=== PATIENT | male | born 1960 ===

== ENCOUNTER 2024-11-14 15:27 | Emergency (ER) | payer OTHER, SELFPAY ==
[2024-11-14 15:37] VITALS: BP 188/68; PULSE 95; RESP 16; TEMP 36.4; O2SAT 97
--- NOTE | 2024-11-14 15:38 | PC.NURSE ---
nephew is with pt. confides in me that the pt was seen at [facility] overnight for possible dehydration, left approximately 4am, and was found by police at 6am outside of an [employer]. nephew states pt is very paranoid about his neighbors trying to kill him and is not acting right. pt is confused to time and situation, and appears agitated during intake.
--- NOTE | 2024-11-14 16:00 | ECG_ITS ---
Test Date: 2024-11-14 19:15:55 Measurements Intervals Brethren Rate: 91 P: 21 IA: 146 QRS: 39 QRSD: 94 T: 49 QT: 368 QTc: 453 Interpretive Statements SINUS RHYTHM BASELINE ARTIFACT- I, II, III, AVR, AVL, AVF, V1-V6 NORMAL ECG No previous ECG available for comparison Electronically Signed On 11-14-2024 20:37:19 CDT by Pierce Velasco D.O.
--- NOTE | 2024-11-14 16:01 | PC.NURSE ---
PT IS RELUCTANT TO GO BACK TO ROOM. HAS BEEN ENCOURAGED BY MULTIPLE STAFF MEMBERS AND IS REFUSING. VIKTORIA Stratton CHARGE NURSE AWARE AND IS CURRENTLY TALKING TO PT.
--- NOTE | 2024-11-14 16:01 | ED.AMS ---
HPI - Altered Mental Status General Chief Complaint: Altered Mental Status Stated Complaint: not acting right Time Seen by Provider: 11/14/24 15:55 Focused HPI: Patient is a 64-year-old male who presents to the ER altered mental status. His nephew is bringing him in because he has concerns about him being dehydrated and being paranoid. Patient denies any pain at time of examination. His nephew reports he took a ?Vicodin earlier today and has been acting strange ever since. Patient reports around 6:00 a.m. this morning patient saw his neighbors were trying to kill him. Police showed up and arrested the patient, as he had a rifle in his home and he is a previously convicted felon. Patient was brought to [facility] for evaluation and he was released, per his nephew. His nephew reports patient continues to act in a strange manner. At the time of examination patient is alert and oriented x3. He is refusing to come back to the main part of the ER for further evaluation. Pt is not SI or HI. GENERAL: Well-nourished, diaphoretic HEAD: Normocephalic, atraumatic. CHEST: Clear to auscultation. ?No respiratory distress. HEART: Tachycardia, regular rhythm. NEURO: ?Alert and oriented x3. Patient screened in triage and initial orders placed.? ?Additional care and disposition to be based upon?diagnostic testing and treatment. Related Data Home Medications ?Medication ?Instructions ?Recorded ?Confirmed ?Last Taken ?Type albuterol sulfate 90 mcg/actuation 2 puff inhalation Q6H PRN 11/15/24 11/15/24 Unknown History aerosol inhaler shortness of breath or wheezing aspirin 81 mg tablet,delayed 81 mg PO DAILY 11/15/24 11/15/24 Unknown History release atorvastatin 80 mg tablet 80 mg PO QPM 11/15/24 11/15/24 Unknown History baclofen 20 mg tablet 20 mg PO TID 11/15/24 11/15/24 Unknown History budesonide 160 mcg-glycopyr 9 2 inh inhalation BID 11/15/24 11/15/24 Unknown History mcg-formot 4.8 mcg/actuation HFA inhaler (Breztri Aerosphere) cetirizine 10 mg tablet 10 mg PO DAILY 11/15/24 11/15/24 Unknown History ergocalciferol (vitamin D2) 1,250 1,250 mcg PO WEEKLY 11/15/24 11/15/24 Unknown History mcg (50,000 unit) capsule famotidine 20 mg tablet 20 mg PO DAILY 11/15/24 11/15/24 Unknown History fluticasone propionate 50 1 spray intranasal Q12H 11/15/24 11/15/24 Unknown History mcg/actuation nasal spray,suspension gabapentin 100 mg capsule 200 mg PO TID 11/15/24 11/15/24 Unknown History ibuprofen 800 mg tablet 800 mg PO TID PRN fever or pain 11/15/24 11/15/24 Unknown History lisinopril 5 mg tablet 5 mg PO DAILY 11/15/24 11/15/24 Unknown History Allergies Allergy/AdvReac Type Severity Reaction Status Date / Time No Known Allergies Allergy Verified 11/14/24 15:29 [facility] Social History Social History Substance use type: does not use Course Vital Signs Vital signs: Vital Signs Temperature 36.4 C 11/14/24 15:37 Pulse Rate 95 11/14/24 15:37 Respiratory Rate 16 11/14/24 15:37 Blood Pressure 188/68 H 11/14/24 15:37 Pulse Oximetry 97 11/14/24 15:37 Oxygen Delivery Room Air 11/14/24 15:37 Temperature 36.4 C 11/14/24 15:37 Pulse Rate 95 11/14/24 15:37 Respiratory Rate 16 11/14/24 15:37 Blood Pressure 188/68 H 11/14/24 15:37 Pulse Oximetry 97 11/14/24 15:37 Oxygen Delivery Room Air 11/14/24 15:37 Discharge Plan Discharge Clinical Impression: Altered mental status Patient Disposition: Elopement After Seen by Prov Patient Language: Tajik Prescriptions: No Action albuterol sulfate 90 mcg/actuation HFA aerosol inhaler 2 puff inhalation Q6H PRN (Reason: shortness of breath or wheezing) aspirin 81 mg tablet,delayed release (DR/EC) 81 mg PO DAILY atorvastatin 80 mg tablet 80 mg PO QPM baclofen 20 mg tablet 20 mg PO TID Breztri Aerosphere 160-9-4.8 mcg/actuation HFA aerosol inhaler 2 inh INHALATION BID cetirizine 10 mg tablet 10 mg PO DAILY ergocalciferol (vitamin D2) 1,250 mcg (50,000 unit) capsule 1,250 mcg PO WEEKLY famotidine 20 mg tablet 20 mg PO DAILY fluticasone propionate 50 mcg/actuation spray,suspension 1 spray INTRANASAL Q12H gabapentin 100 mg capsule 200 mg PO TID lisinopril 5 mg tablet 5 mg PO DAILY ibuprofen 800 mg tablet 800 mg PO TID PRN (Reason: fever or pain) Follow-up/Referrals: UNKNOWN,DOCTOR [Primary Care Provider] -
--- NOTE | 2024-11-14 16:16 | PC.NURSE ---
PT HAS NOW LEFT THE FACILITY AFTER SPEAKING WITH VIKTORIA AGARWAL RN. PT ACCOMPANIED BY HIS NEPHEW.
== END 2024-11-14 17:18 | disposition left against medical advice (07) ==
LOC: ANHED 17:12
PROVIDERS: Emergency Provider Registered Nurse
DX: R41.82 Altered mental status, unspecified (principal)
CPT/HCPCS: 93005; 96360; 99283

== ENCOUNTER 2024-11-14 18:09 | Emergency (ER) | payer OTHER, SELFPAY ==
--- NOTE | ~2024-11-14 | CT_ITS ---
CT brain wo con Ordering provider: Sara Wing APRN History: 64 years Male with . altered mental status . Comparison: None. Technique: CT of the head without contrast. Radiation reduction technique utilized.The dose-length pr oduct was 605.33 mGy-cm. FINDINGS: BRAIN PARENCHYMA AND CSF SPACES: No midline shift, mass effect or hemorrhage. The brain parenchyma a nd CSF spaces are otherwise normal. VISUALIZED PARANASAL SINUSES: Well aerated. MASTOIDS: Well aerated. BONES: The bones appear intact. Old fracture of the medial wall of the left orbit. SOFT TISSUES: Visualized nasopharynx is normal. Superficial soft tissues are normal. IMPRESSION: No acute intracranial findings. Reviewed, dictated and finalized at location A.
[2024-11-14 18:30] VITALS: BP 188/80; PULSE 89; RESP 16; TEMP 36.4; O2SAT 97
--- NOTE | 2024-11-14 18:40 | ED_ITS ---
HPI - Altered Mental Status General Chief Complaint: Altered Mental Status <Sara Wing APRN - Last Filed: 11/15/24 02:51> Stated Complaint: ALTERED MENTAL STATUS <Sara Wing APRN - Last Filed: 11/15/24 02:51> Time Seen by Provider: 11/14/24 18:40 <Sara Wing APRN - Last Filed: 11/15/24 02:51> History of Present Illness HPI narrative: Patient is a 64-year-old male who presents to the ER altered mental status. His nephew is bringing him in because he has concerns about him being dehydrated and being paranoid. Patient denies any pain at time of examination. His nephew reports he took a ?Vicodin earlier today and has been acting strange ever since. Patient reports around 6:00 a.m. this morning patient saw his neighbors were trying to kill him. Police showed up and arrested the patient, as he had a rifle in his home and he is a previously convicted felon. Patient was brought to [facility] for evaluation and he was released, per his nephew. His nephew reports patient continues to act in a strange manner. At the time of examination patient is alert and oriented x3. Pt is not SI or HI. <Sara Wing APRN - Last Filed: 11/15/24 02:51> Related Data Home Medications: Home Medications ?Medication ?Instructions ?Recorded ?Confirmed ?Last Taken ?Type albuterol sulfate 90 mcg/actuation 2 puff inhalation Q6H PRN 11/15/24 11/15/24 Unknown History aerosol inhaler shortness of breath or wheezing aspirin 81 mg tablet,delayed 81 mg PO DAILY 11/15/24 11/15/24 Unknown History release atorvastatin 80 mg tablet 80 mg PO QPM 11/15/24 11/15/24 Unknown History baclofen 20 mg tablet 20 mg PO TID 11/15/24 11/15/24 Unknown History budesonide 160 mcg-glycopyr 9 2 inh inhalation BID 11/15/24 11/15/24 Unknown History mcg-formot 4.8 mcg/actuation HFA inhaler (Breztri Aerosphere) cetirizine 10 mg tablet 10 mg PO DAILY 11/15/24 11/15/24 Unknown History ergocalciferol (vitamin D2) 1,250 1,250 mcg PO WEEKLY 11/15/24 11/15/24 Unknown History mcg (50,000 unit) capsule famotidine 20 mg tablet 20 mg PO DAILY 11/15/24 11/15/24 Unknown History fluticasone propionate 50 1 spray intranasal Q12H 11/15/24 11/15/24 Unknown History mcg/actuation nasal spray,suspension gabapentin 100 mg capsule 200 mg PO TID 11/15/24 11/15/24 Unknown History ibuprofen 800 mg tablet 800 mg PO TID PRN fever or pain 11/15/24 11/15/24 Unknown History lisinopril 5 mg tablet 5 mg PO DAILY 11/15/24 11/15/24 Unknown History <Sara Wing APRN - Last Filed: 11/15/24 02:51> Allergies/Adverse Reactions: Allergies Allergy/AdvReac Type Severity Reaction Status Date / Time No Known Allergies Allergy Verified 11/14/24 15:29 <Sara Wing APRN - Last Filed: 11/15/24 02:51> Review of Systems 2 Review of Systems: All systems reviewed & are unremarkable except as noted in HPI and below <Sara Wing APRN - Last Filed: 11/15/24 02:51> PMFSH Social History Social History: Social History Substance use type: does not use <Sara Wing APRN - Last Filed: 11/15/24 02:51> Exam 2 Narrative: GENERAL: Well-nourished, diaphoretic, non-toxic, in mild distress d/t agitation HEAD: Normocephalic, atraumatic. RESPIRATORY: Airway patent, respirations nonlabored. Clear to auscultation bilaterally, no rales, rhonchi, wheezing. CARDIOVASCULAR: Tachycardia without murmurs, rubs, or gallops. Peripheral pulses 2+ and equal bilaterally. ABDOMINAL: Soft, nontender, distended. Normoactive BS. MUSCULOSKELETAL: Moves all extremities. Strength/ROM intact without gross deformities. NEURO: A&O X3. Speech clear. Cranial nerves II-XII intact. PSYCH: Agitated, difficulty carrying conversation <Sara Wing, [employer] - Last Filed: 11/15/24 02:51> Course Reevaluation(s) Reevaluation #1: 6:00 p.m. patient is resting comfortably. Patient did request to have a cigarette so patient was provided a nicotine patch. Transport to [facility] is pending at time of sign-out. <Andrew Welsh MD - Last Filed: 11/15/24 18:45> Vital Signs Vital signs: Vital Signs Temperature 97.6 F 11/14/24 18:30 Pulse Rate 89 11/14/24 18:30 Respiratory Rate 16 11/14/24 18:30 Blood Pressure 188/80 H 11/14/24 18:30 Pulse Oximetry 97 11/14/24 18:30 Oxygen Delivery Room Air 11/14/24 18:30 Temperature 98.1 F 11/15/24 08:12 Pulse Rate 100 11/15/24 08:12 Respiratory Rate 20 11/15/24 08:12 Blood Pressure 112/86 11/15/24 08:12 Pulse Oximetry 96 11/15/24 08:12 Oxygen Delivery Room Air 11/14/24 20:04 <Sara Wing, [employer] - Last Filed: 11/15/24 02:51> Vital Signs Temperature 97.6 F 11/14/24 18:30 Pulse Rate 89 11/14/24 18:30 Respiratory Rate 16 11/14/24 18:30 Blood Pressure 188/80 H 11/14/24 18:30 Pulse Oximetry 97 11/14/24 18:30 Oxygen Delivery Room Air 11/14/24 18:30 Temperature 98.1 F 11/15/24 08:12 Pulse Rate 100 11/15/24 08:12 Respiratory Rate 20 11/15/24 08:12 Blood Pressure 112/86 11/15/24 08:12 Pulse Oximetry 96 11/15/24 08:12 Oxygen Delivery Room Air 11/14/24 20:04 <Andrew Welsh MD - Last Filed: 11/15/24 18:45> MDM - Altered Mental Status MDM Narrative Medical decision making narrative: Patient is a 64-year-old male who presents to the ER altered mental status. His nephew is bringing him in because he has concerns about him being dehydrated and being paranoid. Patient denies any pain at time of examination. His nephew reports he took a ?Vicodin earlier today and has been acting strange ever since. Patient reports around 6:00 a.m. this morning patient saw his neighbors were trying to kill him. Police showed up and arrested the patient, as he had a rifle in his home and he is a previously convicted felon. Patient was brought to [facility] for evaluation and he was released, per his nephew. His nephew reports patient continues to act in a strange manner. At the time of examination patient is alert and oriented x3. Pt is not SI or HI. Labs Ordered: CBC, CMP, troponin, CK, PTT, INR, TSH, ethanol, UA, UDS Imaging Ordered: CT brain Medications Ordered: 1 L normal saline IV bolus x 2 Results: Patient's CBC indicates patient's white blood cell count of 13.8. His chemistry indicates a sodium of 146, BUN of 38, creatinine 1.71, GFR 41, total bilirubin of 1.4, CK of 430, total protein of 9.0, TSH is 0.402. Pt's head CT scan indicates No acute intracranial findings. Diagnosis: mild acute kidney injury, dehydration, altered mental status 2300- It was explained to patient, his nephew, and his sister, that patient should be admitted to the hospital for altered mental status, along with mild dehydration and a mild kidney injury. 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 Patient's nephew reports he has concerns about patient being discharged home because he fears he is a danger to himself and others. After further discussion between [employer] and pt's family it was decided that mental health intake would be consulted for further evaluation. 11/15/2024, 2400- Pt is medically clear for psychiatric evaluation. Patient Education/Shared MDM: Results of mental health intake shared with patient and his family. It was explained that if patient's altered mental status was due to dehydration, it is expected that patient's symptoms would have improved after 2 L normal saline IV bolus. Therefore, patient's altered mental status is more likely related to a mental health condition. Mental health intake assessed patient and they were in agreement that patient needs to be admitted to a mental health facility for further psychiatric evaluation. <Sara Camilo Maciej, [employer] - Last Filed: 11/15/24 02:51> Differential Diagnosis Differential diagnosis: Likely altered mental status, hyponatremia, sepsis and other <Sara Camilo Maciej [employer] - Last Filed: 11/15/24 02:51> Lab Data Attestation: I reviewed the patient's lab results. <Sara BuenoMari Wing [employer] - Last Filed: 11/15/24 02:51> Result diagrams: 11/14/24 18:52 11/14/24 18:52 <Sara Ton Wing [employer] - Last Filed: 11/15/24 02:51> Labs: Lab Results 11/14/24 11/14/24 11/14/24 Range/Units 18:52 18:58 19:18 WBC 13.8 H (4.5-10.0) K/mm3 RBC 4.86 (4.6-6.20) M/mm3 Hgb 16.1 (14.0-18.0) g/dL Hct 50.5 (42.0-52.0) % MCV 103.9 H (80-100) fl MCH 33.1 (26-34) pg MCHC 31.9 L (32-36) g/dl RDW 12.7 (11.5-14.5) % Plt Count 292 (150-375) k/mm3 MPV 9.7 (7.4-10.4) fl Immature Gran % (Auto) 0.3 (0-0.5) % Neut % (Auto) 77.3 H (45.5-73.1) % Lymph % (Auto) 15.2 L (18.3-44.2) % [place] % (Auto) 7.0 (2.6-8.5) % Eos % (Auto) 0.1 (0-4.4) % Baso % (Auto) 0.1 L (0.2-1.2) % Lymph # (Auto) 2.10 (0.9-3.2) K/mm3 [place] # (Auto) 1.0 H (0.1-0.6) K/mm3 Eos # (Auto) 0.0 (0-0.3) K/mm3 Baso # (Auto) 0.0 (0.0-0.1) K/mm3 Abs Immat Gran (auto) 0.04 H (0.00-0.031) K/mm3 Absolute Neuts (auto) 10.7 H (1.3-6.7) K/mm3 Absolute Nucleated RBC 0.000 (0.0-0.012) K/mm3 Nucleated RBC % 0.0 (0.0-0.2) % PT 13.0 (11.1-14.7) Seconds INR 0.9 APTT 27.4 (22.3-36.8) Seconds Sodium 146 H (137-145) mmol/L Potassium 4.7 (3.4-5.0) mmol/L Chloride 107 (98-107) mmol/L Carbon Dioxide 28 (22-30) mmol/L Anion Gap 11 (4-12) mmol/L BUN 38 H (9-20) mg/dL Creatinine 1.71 H (0.7-1.3) mg/dL Estim Creat Clear Calc 50 ml/min Estimated GFR 41 L (59 - ) Glucose 119 H (65-110) mg/dL POC Capillary Glucose 114 H (65-105) mg/dl Lactic Acid 2.0 (0.7-2.0) mmol/L Calcium 9.7 (8.4-10.2) mg/dL Total Bilirubin 1.4 H (0.2-1.3) mg/dL AST 33 (17-59) U/L ALT 31 (6-50) U/L Alkaline Phosphatase 66 (38-126) U/L Total Creatine Kinase 430 H (55-170) U/L Troponin I 0.015 (0.000-0.034) ng/mL Total Protein 9.0 H (6.3-8.2) g/dL Albumin 5.0 (3.5-5.1) g/dL TSH 0.402 L (0.465-4.680) uIU/mL Urine Color Yellow (Yellow) Urine Appearance Cloudy H (Clear) Urine pH 5.0 (5.0-9.0) Ur Specific [place] 1.028 (1.001-1.035) Urine Protein 2+ H (Negative) mg/dL Urine Glucose (UA) Negative (Negative) mg/dL Urine Ketones Trace H (Negative) mg/dL Ur Blood (Man) 1+ H (Negative) Urine Nitrate Negative (Negative) Urine Bilirubin Negative (Negative) Urine Urobilinogen 0.2 (<2.0) mg/dL Add Ur Microanalysis Reviewed Leukocyte Esterase Rfl Negative (Negative) NJ/UL Urine RBC 11-20 H (0-2) /hpf Urine WBC 0-5 (0-3) /hpf Ur Squamous Epith Cells None seen (Few) /hpf Urine Bacteria None seen /hpf Urine Casts 11-20 Hyaline Casts Present (None) /lpf Urine Mucus Present /lpf Urine Opiates Screen Negative (Negative) Urine Methadone Screen Negative (Negative) Ur Barbiturates Screen Negative (Negative) Ur Phencyclidine Scrn Negative (Negative) Ur Amphetamine Screen Negative (Negative) U Benzodiazepines Scrn Negative (Negative) Urine Cocaine Screen Negative (Negative) U Cannabinoids Screen Negative (Negative) Ethyl Alcohol < 10 (<10) mg/dL SARS-CoV-2 RNA (RT-PCR) (Negative) 11/15/24 Range/Units 00:49 WBC (4.5-10.0) K/mm3 RBC (4.6-6.20) M/mm3 Hgb (14.0-18.0) g/dL Hct (42.0-52.0) % MCV (80-100) fl MCH (26-34) pg MCHC (32-36) g/dl RDW (11.5-14.5) % Plt Count (150-375) k/mm3 MPV (7.4-10.4) fl Immature Gran % (Auto) (0-0.5) % Neut % (Auto) (45.5-73.1) % Lymph % (Auto) (18.3-44.2) % [place] % (Auto) (2.6-8.5) % Eos % (Auto) (0-4.4) % Baso % (Auto) (0.2-1.2) % Lymph # (Auto) (0.9-3.2) K/mm3 [place] # (Auto) (0.1-0.6) K/mm3 Eos # (Auto) (0-0.3) K/mm3 Baso # (Auto) (0.0-0.1) K/mm3 Abs Immat Gran (auto) (0.00-0.031) K/mm3 Absolute Neuts (auto) (1.3-6.7) K/mm3 Absolute Nucleated RBC (0.0-0.012) K/mm3 Nucleated RBC % (0.0-0.2) % PT (11.1-14.7) Seconds INR APTT (22.3-36.8) Seconds Sodium (137-145) mmol/L Potassium (3.4-5.0) mmol/L Chloride (98-107) mmol/L Carbon Dioxide (22-30) mmol/L Anion Gap (4-12) mmol/L BUN (9-20) mg/dL Creatinine (0.7-1.3) mg/dL Estim Creat Clear Calc ml/min Estimated GFR (59 - ) Glucose (65-110) mg/dL POC Capillary Glucose (65-105) mg/dl Lactic Acid (0.7-2.0) mmol/L Calcium (8.4-10.2) mg/dL Total Bilirubin (0.2-1.3) mg/dL AST (17-59) U/L ALT (6-50) U/L Alkaline Phosphatase (38-126) U/L Total Creatine Kinase (55-170) U/L Troponin I (0.000-0.034) ng/mL Total Protein (6.3-8.2) g/dL Albumin (3.5-5.1) g/dL TSH (0.465-4.680) uIU/mL Urine Color (Yellow) Urine Appearance (Clear) Urine pH (5.0-9.0) Ur Specific [place] (1.001-1.035) Urine Protein (Negative) mg/dL Urine Glucose (UA) (Negative) mg/dL Urine Ketones (Negative) mg/dL Ur Blood (Man) (Negative) Urine Nitrate (Negative) Urine Bilirubin (Negative) Urine Urobilinogen (<2.0) mg/dL Add Ur Microanalysis Leukocyte Esterase Rfl (Negative) NJ/UL Urine RBC (0-2) /hpf Urine WBC (0-3) /hpf Ur Squamous Epith Cells (Few) /hpf Urine Bacteria /hpf Urine Casts Hyaline Casts (None) /lpf Urine Mucus /lpf Urine Opiates Screen (Negative) Urine Methadone Screen (Negative) Ur Barbiturates Screen (Negative) Ur Phencyclidine Scrn (Negative) Ur Amphetamine Screen (Negative) U Benzodiazepines Scrn (Negative) Urine Cocaine Screen (Negative) U Cannabinoids Screen (Negative) Ethyl Alcohol (<10) mg/dL SARS-CoV-2 RNA (RT-PCR) Negative (Negative) <Sara BuenoMari Wing, [employer] - Last Filed: 11/15/24 02:51> Lab Results 11/14/24 11/14/24 11/14/24 Range/Units 18:52 18:58 19:18 WBC 13.8 H (4.5-10.0) K/mm3 RBC 4.86 (4.6-6.20) M/mm3 Hgb 16.1 (14.0-18.0) g/dL Hct 50.5 (42.0-52.0) % MCV 103.9 H (80-100) fl MCH 33.1 (26-34) pg MCHC 31.9 L (32-36) g/dl RDW 12.7 (11.5-14.5) % Plt Count 292 (150-375) k/mm3 MPV 9.7 (7.4-10.4) fl Immature Gran % (Auto) 0.3 (0-0.5) % Neut % (Auto) 77.3 H (45.5-73.1) % Lymph % (Auto) 15.2 L (18.3-44.2) % [place] % (Auto) 7.0 (2.6-8.5) % Eos % (Auto) 0.1 (0-4.4) % Baso % (Auto) 0.1 L (0.2-1.2) % Lymph # (Auto) 2.10 (0.9-3.2) K/mm3 [place] # (Auto) 1.0 H (0.1-0.6) K/mm3 Eos # (Auto) 0.0 (0-0.3) K/mm3 Baso # (Auto) 0.0 (0.0-0.1) K/mm3 Abs Immat Gran (auto) 0.04 H (0.00-0.031) K/mm3 Absolute Neuts (auto) 10.7 H (1.3-6.7) K/mm3 Absolute Nucleated RBC 0.000 (0.0-0.012) K/mm3 Nucleated RBC % 0.0 (0.0-0.2) % PT 13.0 (11.1-14.7) Seconds INR 0.9 APTT 27.4 (22.3-36.8) Seconds Sodium 146 H (137-145) mmol/L Potassium 4.7 (3.4-5.0) mmol/L Chloride 107 (98-107) mmol/L Carbon Dioxide 28 (22-30) mmol/L Anion Gap 11 (4-12) mmol/L BUN 38 H (9-20) mg/dL Creatinine 1.71 H (0.7-1.3) mg/dL Estim Creat Clear Calc 50 ml/min Estimated GFR 41 L (59 - ) Glucose 119 H (65-110) mg/dL POC Capillary Glucose 114 H (65-105) mg/dl Lactic Acid 2.0 (0.7-2.0) mmol/L Calcium 9.7 (8.4-10.2) mg/dL Total Bilirubin 1.4 H (0.2-1.3) mg/dL AST 33 (17-59) U/L ALT 31 (6-50) U/L Alkaline Phosphatase 66 (38-126) U/L Total Creatine Kinase 430 H (55-170) U/L Troponin I 0.015 (0.000-0.034) ng/mL Total Protein 9.0 H (6.3-8.2) g/dL Albumin 5.0 (3.5-5.1) g/dL TSH 0.402 L (0.465-4.680) uIU/mL Urine Color Yellow (Yellow) Urine Appearance Cloudy H (Clear) Urine pH 5.0 (5.0-9.0) Ur Specific [place] 1.028 (1.001-1.035) Urine Protein 2+ H (Negative) mg/dL Urine Glucose (UA) Negative (Negative) mg/dL Urine Ketones Trace H (Negative) mg/dL Ur Blood (Man) 1+ H (Negative) Urine Nitrate Negative (Negative) Urine Bilirubin Negative (Negative) Urine Urobilinogen 0.2 (<2.0) mg/dL Add Ur Microanalysis Reviewed Leukocyte Esterase Rfl Negative (Negative) NJ/UL Urine RBC 11-20 H (0-2) /hpf Urine WBC 0-5 (0-3) /hpf Ur Squamous Epith Cells None seen (Few) /hpf Urine Bacteria None seen /hpf Urine Casts 11-20 Hyaline Casts Present (None) /lpf Urine Mucus Present /lpf Urine Opiates Screen Negative (Negative) Urine Methadone Screen Negative (Negative) Ur Barbiturates Screen Negative (Negative) Ur Phencyclidine Scrn Negative (Negative) Ur Amphetamine Screen Negative (Negative) U Benzodiazepines Scrn Negative (Negative) Urine Cocaine Screen Negative (Negative) U Cannabinoids Screen Negative (Negative) Ethyl Alcohol < 10 (<10) mg/dL SARS-CoV-2 RNA (RT-PCR) (Negative) 11/15/24 Range/Units 00:49 WBC (4.5-10.0) K/mm3 RBC (4.6-6.20) M/mm3 Hgb (14.0-18.0) g/dL Hct (42.0-52.0) % MCV (80-100) fl MCH (26-34) pg MCHC (32-36) g/dl RDW (11.5-14.5) % Plt Count (150-375) k/mm3 MPV (7.4-10.4) fl Immature Gran % (Auto) (0-0.5) % Neut % (Auto) (45.5-73.1) % Lymph % (Auto) (18.3-44.2) % [place] % (Auto) (2.6-8.5) % Eos % (Auto) (0-4.4) % Baso % (Auto) (0.2-1.2) % Lymph # (Auto) (0.9-3.2) K/mm3 [place] # (Auto) (0.1-0.6) K/mm3 Eos # (Auto) (0-0.3) K/mm3 Baso # (Auto) (0.0-0.1) K/mm3 Abs Immat Gran (auto) (0.00-0.031) K/mm3 Absolute Neuts (auto) (1.3-6.7) K/mm3 Absolute Nucleated RBC (0.0-0.012) K/mm3 Nucleated RBC % (0.0-0.2) % PT (11.1-14.7) Seconds INR APTT (22.3-36.8) Seconds Sodium (137-145) mmol/L Potassium (3.4-5.0) mmol/L Chloride (98-107) mmol/L Carbon Dioxide (22-30) mmol/L Anion Gap (4-12) mmol/L BUN (9-20) mg/dL Creatinine (0.7-1.3) mg/dL Estim Creat Clear Calc ml/min Estimated GFR (59 - ) Glucose (65-110) mg/dL POC Capillary Glucose (65-105) mg/dl Lactic Acid (0.7-2.0) mmol/L Calcium (8.4-10.2) mg/dL Total Bilirubin (0.2-1.3) mg/dL AST (17-59) U/L ALT (6-50) U/L Alkaline Phosphatase (38-126) U/L Total Creatine Kinase (55-170) U/L Troponin I (0.000-0.034) ng/mL Total Protein (6.3-8.2) g/dL Albumin (3.5-5.1) g/dL TSH (0.465-4.680) uIU/mL Urine Color (Yellow) Urine Appearance (Clear) Urine pH (5.0-9.0) Ur Specific [place] (1.001-1.035) Urine Protein (Negative) mg/dL Urine Glucose (UA) (Negative) mg/dL Urine Ketones (Negative) mg/dL Ur Blood (Man) (Negative) Urine Nitrate (Negative) Urine Bilirubin (Negative) Urine Urobilinogen (<2.0) mg/dL Add Ur Microanalysis Leukocyte Esterase Rfl (Negative) NJ/UL Urine RBC (0-2) /hpf Urine WBC (0-3) /hpf Ur Squamous Epith Cells (Few) /hpf Urine Bacteria /hpf Urine Casts Hyaline Casts (None) /lpf Urine Mucus /lpf Urine Opiates Screen (Negative) Urine Methadone Screen (Negative) Ur Barbiturates Screen (Negative) Ur Phencyclidine Scrn (Negative) Ur Amphetamine Screen (Negative) U Benzodiazepines Scrn (Negative) Urine Cocaine Screen (Negative) U Cannabinoids Screen (Negative) Ethyl Alcohol (<10) mg/dL SARS-CoV-2 RNA (RT-PCR) Negative (Negative) <Andrew Welsh MD - Last Filed: 11/15/24 18:45> Imaging Data Attestation: I personally reviewed and interpreted this imaging study as follows: < Sara Wing APRN - Last Filed: 11/15/24 02:51> Radiologist's impression: Impressions Head CT 11/14/24 20:47 IMPRESSION: No acute intracranial findings. <Sara Wing APRN - Last Filed: 11/15/24 02:51> Discharge Plan Discharge Clinical Impression: Altered mental status, Dehydration, mild, Acute kidney injury <Sara Wing APRN - Last Filed: 11/15/24 02:51> Patient Disposition: Psychiatric Hosp <Sara Wing APRN - Last Filed: 11/15/24 02:51> Condition: Serious <Sara Wing APRN - Last Filed: 11/15/24 02:51> Patient Language: Fijian <Sara Wing APRN - Last Filed: 11/15/24 02:51> Prescriptions: No Action albuterol sulfate 90 mcg/actuation HFA aerosol inhaler 2 puff inhalation Q6H PRN (Reason: shortness of breath or wheezing) aspirin 81 mg tablet,delayed release (DR/EC) 81 mg PO DAILY atorvastatin 80 mg tablet 80 mg PO QPM baclofen 20 mg tablet 20 mg PO TID Breztri Aerosphere 160-9-4.8 mcg/actuation HFA aerosol inhaler 2 inh INHALATION BID cetirizine 10 mg tablet 10 mg PO DAILY ergocalciferol (vitamin D2) 1,250 mcg (50,000 unit) capsule 1,250 mcg PO WEEKLY famotidine 20 mg tablet 20 mg PO DAILY fluticasone propionate 50 mcg/actuation spray,suspension 1 spray INTRANASAL Q12H gabapentin 100 mg capsule 200 mg PO TID lisinopril 5 mg tablet 5 mg PO DAILY ibuprofen 800 mg tablet 800 mg PO TID PRN (Reason: fever or pain) <Sara Wing APRN - Last Filed: 11/15/24 02:51> Follow-up/Referrals: UNKNOWN,DOCTOR [Primary Care Provider] - <Sara Wing APRN - Last Filed: 11/15/24 02:51>
[2024-11-14 19:05] LABS: Basophils Percent Auto 0.1 % (0.2-1.2); Eosinophils Percent Auto 0.1 % (0-4.4); Hematocrit 50.5 % (42.0-52.0); Hemoglobin 16.1 g/dL (14.0-18.0); Immature Granulocyte Absolute 0.04 K/mm3 (0.00-0.031); Immature Granulocyte Percent A 0.3 % (0-0.5); Lymphocytes Percent Auto 15.2 % (18.3-44.2); Mean Corpuscular HGB Conc 31.9 g/dl (32-36); Mean Corpuscular Hemoglobin 33.1 pg (26-34); Mean Corpuscular Volume 103.9 fl (80-100); Mean Platelet Volume 9.7 fl (7.4-10.4); Neutrophils Absolute Auto 10.7 K/mm3 (1.3-6.7); Neutrophils Percent Auto 77.3 % (45.5-73.1); Platelet Count Result 292 k/mm3 (150-375); Red Blood Count 4.86 M/mm3 (4.6-6.20); Red Cell Distribution Width 12.7 % (11.5-14.5); White Blood Count 13.8 K/mm3 (4.5-10.0)
[2024-11-14 19:15] LABS: Alanine Aminotransferase 31 U/L (6-50); Alkaline Phosphatase 66 U/L (38-126); Anion Gap 11 mmol/L (4-12); Aspartate Amino Transferase 33 U/L (17-59); Bilirubin,Total 1.4 mg/dL (0.2-1.3); Blood Urea Nitrogen 38 mg/dL (9-20); Calcium 9.7 mg/dL (8.4-10.2); Carbon Dioxide 28 mmol/L (22-30); Chloride 107 mmol/L (98-107); Creatine Kinase 430 U/L (55-170); Estimated CRCL calculation 50 ml/min; Estimated Glomerular Filt Rate 41; Glucose 119 mg/dL (65-110); Potassium 4.7 mmol/L (3.4-5.0); Sodium 146 mmol/L (137-145)
[2024-11-14 19:23] LABS: Amphetamine Screen Urine Negative (Negative); Barbiturate Screen Urine Negative (Negative); Benzodiazepines Screen Urine Negative (Negative); Cannabinoid Screen Urine Negative (Negative); Cocaine Screen Urine Negative (Negative); Methadone Screen Urine Negative (Negative); Opiate Screen Urine Negative (Negative); Phencyclidine Screen Urine Negative (Negative)
[2024-11-14 19:27] LABS: Troponin I 0.015 ng/mL (0.000-0.034)
--- OUTSIDE RECORDS SUMMARY | 2024-11-14 19:38 | XMS_ITS | Encounter Summary ---
Author Organization [facility] Address Formerly [facility] [place] [address] Care Team Providers Care Panel Maker Name Role Phone Issa Rae MD Primary Care Provider [phone] Encounter Details Date Type Department Care Team (Latest Contact Info) Description 11/14/2024 Travel Social History Tobacco Use Types Packs/Day Years Used Date Smoking Tobacco: Every Day Cigarettes 2 20 Smokeless Tobacco: Never Comments:Verbalized understa nding of smoking cessation. Recomended he quit. Alcohol Use Standard Drinks/Week Comments Not Currently 6 (1 standard drink = 0.6 oz pur e alcohol) [facility] Utilities Answer Date Recorded In the past 12 months has e [employer], gas, oil, or water [employer] threatened to shut off services in your home? No 12/15/2023 Humiliation, Afraid, Rape, and Kick questionnair e Answer Date Recorded Within the last year, have y ou been afraid of your partner or ex-partner? No 12/15/2023 Within the last year, have y ou been humiliated or emotionally abused in other ways by your partner or ex-partner? No Within the last year, have y ou been kicked, hit, slapped, or otherwise physically hurt by your partner or ex-partner? No 12/15/2023 Within the last year, have y ou been raped or forced to have any kind of sexual activity by your partner or ex-partner? No 12/15/2023 AUDIT-C Answer Date Recorded Frequency of Alcohol Consumption Monthly or less 11/05/2018 Average Number of Drinks Not on file 019 Frequency of Binge Drinking Not on file 10/20 Overall Financial Resource Strain (CARDIA) Answe r Date Recorded How hard is it for you to pa y for the very basics like food, housing, medical care, and heating? Not hard at all 12/15/2023 Hunger Vital Sign Answer Date Recorded Within the past 12 months, y ou worried that your food would run out before you got the money to buy more. Never true 12/15/19 24 Within the past 12 months, t he food you bought just didn't last and you didn't have money to get more. Never true 12/15/2023 PRAPARE - Transportation Answer Date Re corded In the past 12 months, has l ack of transportation kept you from medical appointments or from getting medications? No 11/20 In the past 12 months, has l ack of transportation kept you from meetings, work, or from getting things needed for daily living? No 12/15/2023 Housing Stability Vital Sign Answer Joe e Recorded In the last 12 months, was t here a time when you were not able to pay the mortgage or rent on time? No 12/15/2023 In the past 12 months, how m any times have you moved where you were living? 1 12/15/2023 At any time in the past 12 m [facility], were you homeless or living in a prison (including now)? No 12/15/2023 Sex and Gender Information Value Date Recorded Sex Assigned at Not on file Legal Sex Male 4:25 PM CDT Gender Identity Not on file Sexual Orientation Not on file documented as of this encounter Functional Status * Are you deaf or do you have serious difficulty hearing Answer Date of Assessment Author Status No 12/15/2023 2:15 AM ELSYT Amrit Solorio RN Active * Are you blind or do you have serious difficulty seeing, even when wearing glasses? Answer Date of Assessment Author Status No 12/15/2023 2:15 AM ELSYT Amrit Solorio RN Active * Do you have serious difficulty walking or climbing stairs? Answer Date of Assessment Author Status No 12/15/2023 2:15 AM Amrit Hodgson RN Active * Do you have difficulty dressing or bathing? Answer Date of Assessment Author Status No 12/15/2023 2:15 AM Amrit Hodgson RN Active * Because of a physical, mental, or emotional condition, do you have difficulty doing errands alone such as visiting a doctor's office or shopping? Answer Date of Assessment Author Status No 12/15/2023 2:15 AM Amrit Hodgson RN Active * Calculated C-SSRS Risk Score (Lifetime/Recent) Answer Date of Assessment Author Status No Risk Indicated 11/14/2024 12:55 AM Wendy Dumont RN Active * [place] Suicide Severity Rating Scale (Screener/Recent Self-Report) Question Answer Date of Assessment Author Status 1. Wish to be (Past 1 Month) No 11/14/2024 12:55 AM Candie Dumont RN Ac tive 2. Non-Specific Active Suicidal Thoughts (Past 1 Month) No 11/14/2024 12:55 AM Candie Dumont RN Ac tive 6. Suicidal Behavior (Lifetime) No 11/14/2024 12:55 AM Candie Dumont RN Ac tive documented as of this encounter Mental Status * Because of a physical, mental, or emotional condition, do you have serious difficulty concentrating, remembering, or making decisions? Answer Entry Date Author Status No 12/15/2023 2:15 AM Amrit Hodgson RN Active documented in this encounter Plan of Treatment Not on file documented as of this encounter Visit Diagnoses Not on filedocumented in this encounter Care Teams Panel Maker Relationship Specialty Start Date End Date Issa Rae MD [address] [place] [id number] PCP - General 12/04/16 documented as of this encounter
--- OUTSIDE RECORDS SUMMARY | 2024-11-14 19:38 | XMS_ITS | Encounter Summary ---
Author Organization [facility] Address Formerly [facility] [place] [address] Care Team Providers Care Supervisor Electron Tube Processing Name Role Phone Issa Rae MD Primary Care Provider [phone] Reason for Referral * Imaging (Emergency) - New Request Specialty Diagnoses / Procedures Referred By Dipak ramey Referred To Contact RADIOLOGY Procedures CT HEAD WO CON Mark Villalobos MD [address] [place] [id number] Phone: tel: fax: Referral ID Status Reason Start Date Expiration Date V isits Requested Visits Authorized [id number] New Request 11/14/2024 11/14/2025 1 1 Reason for Visit * Reason Comments Visual Changes Encounter Details Date Type Department Care Team (Late st Contact Info) Description 11/14/2024 1:31 AM CDT - 11/14/2024 5:42 AM CDT Hospital Encounter [facility] Emergency Room [address] [place], [place] [address] Mark Villalobos MD [address] [place] [phone] Isidoro Reed MD 1 [facility] [place] [address] [phone] (Work) Marisela Bonner MD 1 [facility] [place] [address] Deidre Centeno MD 1 [place] [address] -[phone] (Work) Visual Changes Discharge Disposition: Left Against Medical Advice Social History Tobacco Use Types Packs/Day Years Used Date Smoking Tobacco: Every Day Cigarettes 2 20 Smokeless Tobacco: Never Comments:Verbalized understa nding of smoking cessation. Recomended he quit. Alcohol Use Standard Drinks/Week Comments Not Currently 6 (1 standard drink = 0.6 oz pur e alcohol) [facility] Utilities Answer Date Recorded In the past 12 months has [facility] [employer], gas, oil, or water [email or web address] threatened to shut off services in your [...] any time in the past 12 m [facility], were you homeless or living in a halfway (including now)? No 12/15/2023 Sex and Gender Information Value Date Recorded Sex Assigned at Not on file Legal Sex Male 4:25 PM CDT Gender Identity Not on file Sexual Orientation Not on file documented as of this encounter Last Filed Vital Signs Vital Sign Reading Time Taken Comments Blood Pressure 138/66 11/14/2024 4:00 AM CDT Pulse 92 11/14/2024 4:00 AM CDT Temperature 36.9 C (98.4 F) 11/14/2024 12:49 AM CDT Respiratory Rate 18 11/14/2024 4:00 AM CDT Oxygen Saturation 96% 11/14/2024 4:00 AM CDT Inhaled Oxygen Concentration - - Weight 111.5 kg (245 lb 13 oz) 11/14/2024 12:49 AM CDT Height 177.8 cm (5' 10 ) 11/14/2024 12:49 AM CDT Body Mass Index 35.27 11/14/2024 12:49 AM CDT documented in this encounter Functional Status * Are you deaf or do you have serious difficulty hearing Answer Date of Assessment Author Status No 12/15/2023 2:15 AM CDT Amrit Solorio RN Active * Are you blind or do you have serious difficulty seeing, even when wearing glasses? Answer Date of Assessment Author Status No 12/15/2023 2:15 AM Amrit Hodgson RN Active * Do you have serious [...] 12:55 AM Wendy Dumont RN Active * [place] Suicide Severity Rating Scale (Screener/Recent Self-Report) Question Answer Date of Assessment Author Status 1. Wish to be (Past 1 Month) No 11/14/2024 12:55 AM Candie Dumont RN Ac tive 2. Non-Specific Active Suicidal Thoughts (Past 1 Month) No 11/14/2024 12:55 AM Candie Dumont RN Ac ticandy 6. Suicidal Behavior (Lifetime) No 11/14/2024 12:55 AM Candie Dumont RN Ac tive documented as of this encounter Mental Status * Because of a physical, mental, or emotional condition, do you have serious difficulty concentrating, remembering, or making decisions? Answer Entry Date Author Status No 12/15/2023 2:15 AM Amrit Hodgson RN Active documented in this encounter Medications at Time of Discharge albuterol sulfate HFA 108 (90 Base) MCG/ACT inhaler Inhale 2 puffs into the lungs every 6 (six) hours as needed for Wheezing. 8 g 11/12/2022 ANORO ELLIPTA 62.5-25 MCG/ACT inhaler Inhale 1 puff into the lungs daily. aspirin EC (ECOTRIN) 81 MG tablet Take 1 tablet (81 mg total) by mouth daily. 08/22/2023 baclofen (LIORESAL) 20 MG tablet Take 1 tablet (20 mg total) by mouth 3 (three) times daily. 11/25/2023 cetirizine (ZYRTEC) 10 MG tablet Take 1 tablet (10 mg total) by mouth daily. 11/18/2023 famotidine 20 MG tablet Take 20 mg by mouth 2 (two) times daily. 0 08/11/2018 fluticasone propionate (FLONASE) 50 MCG/ACT nasal spray 1 spray by Each Nostril route 2 (two) times daily. shake liquid 10/27/2023 gabapentin 100 MG capsule TK 2 CS PO TID 1 04/12/2019 lisinopril (PRINIVIL) 5 MG tablet Take 1 tablet (5 mg total) by mouth daily. vitamin D2, ergocalciferol, (DRISDOL) 1.25 mg capsule Take 1 capsule (1.25 mg total) by mouth once a week. 11/21/2023 zolpidem (AMBIEN) 10 MG tablet Take 1 tablet (10 mg total) by mouth nightly as needed. 05/07/2023 documented as of this encounter ED Notes * Min Marquez RN - 11/14/2024 5:25 AM CDT Patient alert and oriented x 4. Patient refusing any further treatment. Risks and consequences of leaving explained to the patient. Patient verbalizes an understanding of information provided. Patient signed AMA form. * Min Marquez RN - 11/14/2024 5:25 AM CDT Patient ambulated out of ER to waiting room. Dr. Villalobos, Dr. Reed and primary RN Hecotr aware of patient leaving AMA. * Min Marquez RN - 11/14/2024 5:20 AM CDT Patient stated his sister will come pick him up. * Mark Villalobos MD - 11/14/2024 1:53 AM CDT Chief Complaint Chief Complaint Patient presents with Visual Changes History of Present Illness 64-year-old male who presents with various complaints. Initially reported calf pain. Then stated hehas been having bilateral vision changes including flashing lights. H/o stroke. Thinks his speech has been abnormal. These symptoms ongoing for several days. Then starts stating he has kidney pain that feels like a tugging sensation. Overall poor historian History provided by: Patient Medical History ALLERGIES: Review of patient's allergies indicates: Allergen Reactions Penicillins Hives MEDICATIONS: Prior to Admission medications Medication Sig Start Date End Date Taking? Authorizing Provider albuterol sulfate HFA 108 (90 Base) MCG/ACT inhaler Inhale 2 puffs into the lungs every 6 (six) hours as needed for Wheezing. 11/12/22 VARGAS Carvalho ANORO ELLIPTA 62.5-25 MCG/ACT inhaler Inhale 1 puff into the lungs daily. Default History Genericprovider aspirin EC (ECOTRIN) 81 MG tablet Take 1 tablet (81 mg total) by mouth daily. 08/22/23 Default History Genericprovider baclofen (LIORESAL) 20 MG tablet Take 1 tablet (20 mg total) by mouth 3 (three) times daily. 11/25/23Default History Genericprovider cetirizine (ZYRTEC) 10 MG tablet Take 1 tablet (10 mg total) by mouth daily. 11/18/23 Default History Genericprovider famotidine 20 MG tablet Take 20 mg by mouth 2 (two) times daily. 08/11/18 [facility] fluticasone propionate (FLONASE) 50 MCG/ACT nasal spray 1 spray by Each Nostril route 2 (two) timesdaily. shake liquid 10/27/23 Default History Genericprovider gabapentin 100 MG capsule TK 2 CS PO TID 04/12/19 [facility] lisinopril (PRINIVIL) 5 MG tablet Take 1 tablet (5 mg total) by mouth daily. Default History Genericprovider vitamin D2, ergocalciferol, (DRISDOL) 1.25 mg capsule Take 1 capsule (1.25 mg total) by mouth once a week. 11/21/23 Default History Genericprovider zolpidem (AMBIEN) 10 MG tablet Take 1 tablet (10 mg total) by mouth nightly as needed. 05/07/23 Default History Genericprovider PAST MEDICAL HISTORY: Past Medical History[1] PAST SURGICAL HISTORY: Past Surgical History[2] FAMILY HISTORY: Family History[3] SOCIAL HISTORY: Social History[4] Review of Systems Review of Systems All other systems reviewed and are negative. Physical Exam Filed Vitals: 11/14/24 0049 11/14/24 0400 BP: (!) 172/87 138/66 Pulse: 100 92 Resp: 20 18 Temp: 98.4 ??F (36.9 ??C) TempSrc: Oral SpO2: 100% 96% Weight: 111.5 kg (245 lb 13 oz) Height: 1.778 m (5' 10 ) Physical Exam Vitals and nursing note reviewed. Constitutional: General: He is not in acute distress. Appearance: Normal appearance. He is not ill-appearing, toxic-appearing or diaphoretic. HENT: Head: Normocephalic and atraumatic. Nose: Nose normal. Eyes: Extraocular Movements: Extraocular movements intact. Conjunctiva/sclera: Conjunctivae normal. Pupils: Pupils are equal, round, and reactive to light. Cardiovascular: Rate and Rhythm: Normal rate and regular rhythm. Pulses: Normal pulses. Heart sounds: Normal heart sounds. Pulmonary: Effort: Pulmonary effort is normal. Breath sounds: Normal breath sounds. Abdominal: General: There is no distension. Palpations: Abdomen is soft. Tenderness: There is no abdominal tenderness. Skin: General: Skin is warm and dry. Capillary Refill: Capillary refill takes less than 2 seconds. Neurological: General: No focal deficit present. Mental Status: He is alert and oriented to person, place, and time. Cranial Nerves: Cranial nerves 2-12 are intact. Sensory: Sensation is intact. Motor: Motor function is intact. Coordination: Coordination is intact. Diagnostic Studies / Procedures ELECTROCARDIOGRAMS: Results for orders placed or performed during the hospital encounter of 11/14/24 ECG 12 lead Narrative [place] Test Date: 2024-11-14 Pat Name: DONN MATIAS Department: 41 Room: Gender: Male Slate Picker: : [phone] Requested By: LEONILA PALACIO Order Number: [id number] Reading MD: Measurements Intervals [place] Rate: 92 P: 42 KY: 158 QRS: 60 QRSD: 86 T: 63 QT: 330 QTc: 409 Interpretive Statements SINUS RHYTHM Compared to ECG 12/14/2023 22:16:44 No significant changes LABORATORY STUDIES: Results for orders placed or performed during the hospital encounter of 11/14/24 CBC W/DIFF AUTOMATED Result Value Ref Range WBC 12.93 (H) 4.5 - 11.0 x10'3/uL RBC 4.92 4.70 - 6.10 x10'6/uL HGB 16.7 14.0 - 18.0 G/DL HCT 49.6 43.0 - 54.0 % MCV 100.8 (H) 80.0 - 94.0 FL MCH 33.9 (H) 27.0 - 31.0 PG MCHC 33.7 32.0 - 36.0 G/DL RDW 12.6 11.5 - 14.5 % PLT 316 130 - 400 x10'3/uL MPV 9.8 9.3 - 12.2 FL DIFFERENTIAL TYPE AUTOMATED DIFFERENTIAL NEUTROPHILS % 80.0 % LYMPHOCYTES % 13.9 % MONOCYTES % 5.7 % EOSINOPHILS 0.0 % BASOPHILS 0.2 % IMMATURE GRANS % 0.2 % ABS. NEUTROPHILS 10.33 (H) 1.80 - 7.70 x10'3/uL ABS. LYMPHOCYTES 1.80 1.00 - 4.80 x10'3/uL ABS. MONOCYTES 0.74 0.30 - 0.82 x10'3/uL ABS. EOSINOPHILS 0.00 (L) 0.04 - 0.54 x10'3/uL ABS. BASOPHILS 0.03 0.01 - 0.08 x10'3/uL ABS. IMMATURE GRANULOCYTES 0.03 0.00 - 0.49 x10'3/uL COMPREHENSIVE METABOLIC PANEL Result Value Ref Range GLUCOSE 135 (H) 70 - 99 MG/DL BUN 39 (H) 7 - 18 MG/DL CREATININE S/P/B 2.76 (H) 0.7 - 1.3 MG/DL SODIUM S/P/B 139 136 - 145 MMOL/L POTASSIUM S/P/B 4.0 3.5 - 5.1 MMOL/L CHLORIDE S/P/B 109 97 - 115 MMOL/L CO2 23.4 21 - 32 MMOL/L CALCIUM S/P/B 9.1 8.5 - 10.1 MG/DL BILIRUBIN TOTAL S/P/B 0.8 0.2 - 1.2 MG/DL TOTAL PROTEIN S/P/B 8.6 (H) 6.4 - 8.2 G/DL ALBUMIN S/P/B 4.3 3.4 - 5.0 G/DL AST 18 15 - 37 U/L ALT 30 16 - 60 U/L ALKALINE PHOSPHATASE S/P/B 69 50 - 136 U/L ANION GAP 6.6 2 - 10 MMOL/L BUN CREATININE RATIO 14.1 6 - 26 A/G RATIO 1.0 1.0 - 2.0 RATIO GFR ESTIMATE 25 (L) >90 ML/MIN/1.73 M2 TROPONIN, QUANT Result Value Ref Range TROPONIN I HIGH SENSITIVITY 30 <79 ng/L URINALYSIS Result Value Ref Range SPECIMEN TYPE URINE CLEAN CATCH COLOR (U) YELLOW TRANSPARENCY CLEAR SPECIFIC GRAVITY (U) 1.029 1.001 - 1.030 U PH 5.5 5.0 - 9.0 LEUKOCYTES (U) NEGATIVE NEGATIVE NITRITES NEGATIVE NEGATIVE PROTEIN RANDOM (U) 70 (H) <30 MG/DL GLUCOSE (U) NORMAL NORMAL MG/DL KETONES MG/DL (U) TRACE (A) NEGATIVE MG/DL UROBILINOGEN 2.0 (A) NORMAL MG/DL BILIRUBIN (U) NEGATIVE NEGATIVE MG/DL BLOOD (U) NEGATIVE NEGATIVE MUCUS FEW /LPF HYALINE CASTS MANY /LPF WBC/HPF 5 <6 /HPF RBC/HPF 6 (H) <6 /HPF SQUAMOUS EPITHELIALS RARE /HPF DRUG SCREEN RAPID Result Value Ref Range AMPHETAMINE (U) NEGATIVE NEGATIVE BARBITURATES SCREEN (U) NEGATIVE NEGATIVE BENZODIAZEPINES SCREEN (U) NEGATIVE NEGATIVE CANNABINOIDS SCREEN (U) NEGATIVE NEGATIVE COCAINE METABOLITES (U) NEGATIVE NEGATIVE METHADONE (U) NEGATIVE NEGATIVE OPIATE SCREEN (U) POSITIVE (A) NEGATIVE PHENCYCLIDINE PCP (U) NEGATIVE NEGATIVE CREATININE (U) >400.0 (H) 39 - 259 MG/DL IMAGING STUDIES CT HEAD WO CON Final Result by User, [id number] (11/14 229) [facility] 1 [place], [place] [address] EXAMINATION: CT HEAD WO CON, 11/14/2024 2:27 AM TECHNIQUE: Computed tomographic images of the head were obtained without intravenous contrast. Additional coronal and sagittal reformatted images were generated. A dose lowering technique was used for this procedure, which may include, but is not limited to, dose reduction technique, automated exposure control, the use of iterative reconstruction, and ALARA (As Low As Reasonably Achievable) / Image Gently techniques. HISTORY: Visual changes, flashing lights, possible abnormal speech COMPARISON: CT head 12/14/2023 FINDINGS: There is no acute intracranial hemorrhage. There is no extra-axial fluid collection. Preserved pineda-white matter differentiation. The ventricles are normal in size. The basal cisterns appear normal. Orbital contents appear normal. 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 Mastoid air cells are well-aerated. No acute fracture nor destructive process of the visualized osseous structures. IMPRESSION: No CT evidence of an acute intracranial abnormality. Referred By: Interpreted By: Ricky Yeh MD, 11/14/2024 2:27 AM ED Course / Medical Decision Making Medical Decision Making Problems Addressed: Bizarre behavior: acute illness or injury Vision changes: acute illness or injury Amount and/or Complexity of Data Reviewed Labs: ordered. Decision-making details documented in ED Course. Radiology: ordered and independent interpretation performed. Decision-making details documented in ED Course. ECG/medicine tests: ordered and independent interpretation performed. Decision- making details documented in ED Course. Risk Decision regarding hospitalization. ED Course as of 11/14/24 0522 Sat Nov 14, 2024 0254 TROPONIN I HIGH SENSITIVITY: 30 [JH] 0306 ECG 12 lead Normal sinus rhythm, no ST elevations or depressions, no T wave inversions, intervals normal [JH] 0306 CREATININE S/P/B(!): 2.76 VANCE [JH] 0430 Visual acuity normal [JH] 0521 Patient does not want to be admitted. Patient will leave AGAINST MEDICAL ADVICE. He was informed of the risks of leaving AGAINST MEDICAL ADVICE. He is alert and oriented to understand these risks. [JH] ED Course User Index [JH] Mark Villalobos MD Clinical Impression Vision changes (Primary) Bizarre behavior Disposition: AMA [1] Past Medical History: Diagnosis Date Arthritis Back disorder Broken wrist Cancer ([facility] 2018 Prostate cancer Carpal tunnel syndrome COPD (chronic obstructive pulmonary disease) ([facility]) Hypertension Nerve damage ALONSO (obstructive sleep apnea) Prostate enlargement Tennis elbow [2] Past Surgical History: Procedure Laterality Date FOOT SURGERY IR CAROTID STENT Left [3] Family History Problem Relation Name Age of Onset Stroke Mother Heart Attack Father [4] Social History Tobacco Use Smoking status: Every Day Current packs/day: 2.00 Average packs/day: 2.0 packs/day for 20.0 years (40.0 ttl pk-yrs) Types: Cigarettes Smokeless tobacco: Never Tobacco comments: Verbalized understanding of smoking cessation. Recomended he quit. Vaping Use Vaping status: Never Used Substance Use Topics Alcohol use: Not Currently Alcohol/week: 6.0 standard drinks of alcohol Types: 6 Standard drinks or equivalent per week Drug use: Yes Types: Marijuana Comment: daily Mark Villalobos MD 11/14/24 0522 * Kassy Estrada RN - 11/14/2024 1:49 AM CDT Bed: 16 Expected date: Expected time: Means of arrival: Comments: [place] * Breanna Scherer - 11/14/2024 1:44 AM CDT Patient refusing to complete visual acuity at this time. * Candie Sher RN - 11/14/2024 12:49 AM CDT Arrived to Ed with c/o bilateral flashes of light and blurry vision. Symptoms are off and on for the last 3-4 days. Poor historian. documented in this encounter Plan of Treatment Not on file documented as of this encounter Procedures Procedure Name Priority Date/Time Associated Diagnosis Comments DRUG SCREEN RAPID STAT 11/14/2024 3:3 0 AM CDT URINALYSIS STAT 11/14/2024 3:[address] HEAD WO CON STAT 11/14/2024 2:23 AM CDT ECG 12-LEAD Routine 11/14/2024 1:39 AM CDT COMPREHENSIVE METABOLIC PANEL STAT 11/14/2024 1:30 AM CDT CBC W/DIFF AUTOMATED STAT 11/14/2024 1:30 AM CDT TROPONIN, QUANT STAT 11/14/2024 1:30 AM CDT documented in this encounter Results * (ABNORMAL) DRUG SCREEN RAPID (11/14/2024 3:30 AM CDT) Pathologist [facility] AMPHETAMINE (U) NEGATIVE NEGATIVE 4:[address] [facility] BARBITURATES SCREEN (U) NEGATIVE NEGATIVE 11/14/2024 4:[address] [facility] BENZODIAZEPINES SCREEN (U) NEGATIVE NEGATIVE 11/14/2024 4:[address] [facility] CANNABINOIDS SCREEN (U) NEGATIVE NEGATIVE 11/14/2024 4:[address] [facility] COCAINE METABOLITES (U) NEGATIVE NEGATIVE 11/14/2024 4:05 AM CDT [facility] METHADONE (U) NEGATIVE NEGATIVE 11/14/2024 4:05 AM CD[address] [facility] OPIATE SCREEN (U) POSITIVE(A) NEGATIVE 2024 4:05 AM CDT [facility] PHENCYCLIDINE PCP (U) NEGATIVE NEGATIVE 11/14/2024 4:05 AM CDT [facility] Comment: NOTE: RESULTS OF THIS DRUG SCREEN SHOULD BE USED FOR MEDICAL PURPOSES ONLY AND NOT FOR LEGAL OR EMPLOYMENT PURPOSES. POSITIVE RESULTS ARE NOT CONFIRMED. MEDICATIONS CONTAINING EPHEDRINE MAY CAUSE FALSE POSITIVE AMPHETAMINE CALL [phone], LAB, TO REQUEST CONFIRMATION TESTING. IF CREATININE IS <40 mg/dL. RECOLLECTION IS SUGGESTED. AMPHETAMINE- 500 NG/ML BARBITURATE- 200 NG/ML BENZODIAZEPINES- 200 NG/ML THC- 50 NG/ML COCAINE- 150 NG/ML METHADONE- 300 NG/ML OPIATE- 300 MG/ML PCP- 25 NG/ML CREATININE (U) >400.0(H) 39 - 259 MG/DL 11/14/2024 4:[address] [facility] URINE SPECIMEN / Unknown 11/14/2024 3:30 AM CDT Mark Villalobos MD URINE ORDERABLES Final Result [facility] [address] [place] [id number], * (ABNORMAL) URINALYSIS (11/14/2024 3:30 AM CDT) SPECIMEN TYPE URINE CLEAN CATCH 11/14/2024 3:29 AM CDT [facility] COLOR (U) YELLOW 11/14/2024 3:52 AM CDT [facility] TRANSPARENCY CLEAR 11/14/2024 3:52 AM CDT [facility] SPECIFIC GRAVITY (U) 1.029 1.001 - 1.030 11/14/2024 3:52 AM CDT [facility] U PH 5.5 5.0 - 9.0 11/14/2024 3:52 AM CDT [facility] LEUKOCYTES (U) NEGATIVE NEGATIVE 11/14/2024 3:52 AM CDT [facility] NITRITES NEGATIVE NEGATIVE 11/14/2024 3:52 AM CDT [facility] PROTEIN RANDOM (U) 70(H) <30 MG/DL 11/14/2024 3:52 AM CDT [facility] GLUCOSE (U) NORMAL NORMAL MG/DL 11/14/2024 3:52 AM CDT [facility] KETONES MG/DL (U) TRACE(A) NEGATIVE MG/DL 11/14/2024 3:52 AM CDT [facility] UROBILINOGEN 2.0(A) NORMAL MG/DL 11/14/2024 3:52 AM CDT [facility] BILIRUBIN (U) NEGATIVE NEGATIVE MG/DL 11/14/2024 3:52 AM CDT [facility] BLOOD (U) NEGATIVE NEGATIVE 11/14/2024 3:52 AM CDT [facility] MUCUS FEW /LPF 11/14/2024 3:52 AM CDT [facility] HYALINE CASTS MANY /LPF 11/14/2024 3:52 AM CDT [facility] WBC/HPF 5 <6 /HPF 11/14/2024 3:52 AM CDT [facility] RBC/HPF 6(H) <6 /HPF 11/14/2024 3:52 AM CDT [facility] SQUAMOUS EPITHELIALS RARE /HPF 11/14/2024 3:52 AM CDT [facility] URINE SPECIMEN OBTAINED BY CLEAN CATCH PROCEDURE / Unknown 11/14/2024 3:30 AM CDT us Leonila KAYE URINE ORDERABLES Final Result [facility] [address] [place] [address], * CT HEAD WO CON (11/14/2024 2:23 AM CDT) Anatomical Region Laterality Modality Head Computed Tomogra phy 11/14/2024 2:27 AM CDT Impressions 11/14/2024 2:29 AM CDT IMPRESSION: No CT evidence of an acute intracranial abnormality. Referred By: Interpreted By: Ricky Yeh MD, 11/14/2024 2:27 AM Narrative 11/14/2024 2:29 AM CDT [address] [address] EXAMINATION: CT HEAD WO CON, 11/14/2024 2:27 AM TECHNIQUE: Computed tomographic images of the head were obtained without intravenous contrast. Additional coronal and sagittal reformatted images were generated. A dose lowering technique was used for this procedure, which may include, but is not limited to, dose reduction technique, automated exposure control, the use of iterative reconstruction, and ALARA (As Low As Reasonably Achievable) / Image Gently techniques. HISTORY: Visual changes, flashing lights, possible abnormal speech COMPARISON: CT head 12/14/2023 FINDINGS: There is no acute intracranial hemorrhage. There is no extra-axial fluid collection. Preserved pineda-white matter differentiation. The ventricles are normal in size. The basal cisterns appear normal. Orbital contents appear normal. 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 Mastoid air cells are well-aerated. No acute fracture nor destructive process of the visualized osseous structures. Procedure Note Ricky Yeh MD - 11/14/[address] [address] EXAMINATION: CT HEAD WO CON, 11/14/2024 2:27 AM TECHNIQUE: Computed tomographic images of the head were obtained withoutintravenous contrast. Additional coronal and sagittal reformatted imageswere generated. A dose lowering technique was used for this procedure,which may include, but is not limited to, dose reduction technique,automated exposure control, the use of iterative reconstruction, and ALARA(As Low As Reasonably Achievable) / Image Gently techniques. HISTORY: Visual changes, flashing lights, possible abnormal speech COMPARISON: CT head 12/14/2023 FINDINGS: There is no acute intracranial hemorrhage. There is noextra-axial fluid collection. Preserved pineda-white matterdifferentiation. The ventricles are normal in size. The basal cisternsappear normal. Orbital contents appear normal. Old medial left orbitalwall injury with protrusion of extraconal orbital fat into the leftethmoidal air cells. Mastoid air cells are well-aerated. No acutefracture nor destructive process of the visualized osseous structures. IMPRESSION: No CT evidence of an acute intracranial abnormality. Referred By: Interpreted By: Ricky Yeh MD, 11/14/2024 2:27 AM Mark Villalobos MD CT Final Result * ECG 12 lead (11/14/2024 1:39 AM CDT) 11/14/2024 1:39 AM CDT Narrative [facility] RAD - 11/14/2024 2:26 PM CDT [place] [address] Test Date: 2024-11-14 Pat Name: DONN MATIAS Department: 41 Room: GAMA Gender: Male Slate Picker: : [phone] Requested By: LEONILA PALACIO Order Number: [id number] Reading MD: Conrado Abdullahi Measurements Intervals [place] Rate: 92 P: 42 KY: 158 QRS: 60 QRSD: 86 T: 63 QT: 330 QTc: 409 Interpretive Statements SINUS RHYTHM Compared to ECG 12/14/2023 22:16:44 No significant changes Other ischemic changes, not STEMI Preliminary EKG Interpretation by Mark Villalobos M.D. Procedure Note Conrado Abdullahi MD - 11/14/[address] Test Date: 2024-11-14 Pat Name: DONN MATIAS Department: 41 Room: GAMA Gender: Male Slate Picker: : [phone] Requested By: LEONILA PALACIO Order Number: [id number] Reading MD: Conrado Abdullahi Measurements Intervals [place] Rate: 92 P: 42 KY: 158 QRS: 60 QRSD: 86 T: 63 QT: 330 QTc: 409 Interpretive Statements SINUS RHYTHM Compared to ECG 12/14/2023 22:16:44 No significant changes Other ischemic changes, not STEMI Preliminary EKG Interpretation by Mark Villalobos M.D. Leonila KAYE ECG ORDERABLES Final Result Performing Organization Address City/[facility]/ZIP Co de Phone Number [facility] * TROPONIN, QUANT (11/14/2024 1:30 AM CDT) TROPONIN I HIGH SENSITIVITY 30 <79 ng/L 11/14/2024 2:[address] [facility] Comment: HIGH DOSES OF BIOTIN, TROPONIN-SPECIFIC AUTOANTIBODIES, AND ANTIBODY THERAPY CONTAINING HAMA MAY INTERFERE WITH THIS TEST RESULT. CORRELATION TO CLINICAL HISTORY AND PRESENTATION RECOMMENDED. 11/14/2024 1:30 AM CDT [facility] Final Result Performing Organization Address City/[facility]/ZIP Co de Phone Number [facility] [address] [place] [address], [place] [phone] * (ABNORMAL) COMPREHENSIVE METABOLIC PANEL (11/14/2024 1:30 AM CDT) [facility] GLUCOSE 135(H) 70 - 99 MG/DL 11/14/2024 2:[address] [facility] BUN 39(H) 7 - 18 MG/DL 11/14/2024 2:[address] [facility] CREATININE S/P/B 2.76(H) 0.7 - 1.3 MG/DL 11/14/2024 2:[address] [facility] SODIUM S/P/B 139 136 - 145 MMOL/L 11/14/2024 2:[address] [facility] POTASSIUM S/P/B 4.0 3.5 - 5.1 MMOL/L 11/14/2024 2:[address] [facility] CHLORIDE S/P/B 109 97 - 115 MMOL/L 11/14/2024 2:[address] AM [address] [facility] CO2 23.4 21 - 32 MMOL/L 11/14/2024 2:06 AM [address] [facility] CALCIUM S/P/B 9.1 8.5 - 10.1 MG/DL 11/14/2024 2:06 AM [address] [facility] BILIRUBIN TOTAL S/P/B 0.8 0.2 - 1.2 MG/DL 11/14/2024 2:[address] [facility] Comment: THIS ASSAY IS NOT RECOMMENDED FOR PATIENTS UNDERGOING TREATMENT WITH ELTROMBOPAG DUE TO THE POTENTIAL FOR FALSELY ELEVATED RESULTS. TOTAL PROTEIN S/P/B 8.6(H) 6.4 - 8.2 G/DL 11/14/2024 2:[address] [facility] ALBUMIN S/P/B 4.3 3.4 - 5.0 G/DL 11/14/2024 2:[address] [facility] AST 18 15 - 37 U/L 11/14/2024 2:[address] [facility] ALT 30 16 - 60 U/L 11/14/2024 2:[address] [facility] ALKALINE PHOSPHATASE S/P/B 69 50 - 136 U/L 11/14/2024 2:[address] [facility] ANION GAP 6.6 2 - 10 MMOL/L 11/14/2024 2:[address] [facility] BUN CREATININE RATIO 14.1 6 - 11/14/2024 2:[address] [facility] A/G RATIO 1.0 1.0 - 2.0 RATIO 11/14/2024 2:[address] [facility] GFR ESTIMATE 25(L) >90 ML/MIN/1.7 3 M2 11/14/2024 2:[address] [facility] Comment: NOTE: eGFR is not calculated for patients <18 years of age or gender unknown. This is an estimated GFR calculation using the new CKD EPI creatinine equation without race and so does not require a correction factor for race. This estimated GFR should not be used for calculating drug doses. 11/14/2024 1:30 AM CDT [facility] Final Result [facility] [address] [place] [address], * (ABNORMAL) CBC W/DIFF AUTOMATED (11/14/2024 1:30 AM CDT) WBC 12.93(H) 4.5 - 11.0 x10'3/uL 11/14/2024 1:[address] [facility] RBC 4.92 4.70 - 6.10 x10'6/uL 11/14/2024 1:52 [address] [facility] HGB 16.7 14.0 - 18.0 G/DL 11/14/2024 1:52 [address] [facility] HCT 49.6 43.0 - 54.0 % 11/14/2024 1:[address] [facility] MCV 100.8(H) 80.0 - 94.0 FL 11/14/2024 1:[address] [facility] MCH 33.9(H) 27.0 - 31.0 PG 11/14/2024 1:52 [address] [facility] MCHC 33.7 32.0 - 36.0 G/DL 11/14/2024 1:52 [address] [facility] RDW 12.6 11.5 - 14.5 % 11/14/2024 1:[address] [facility] PLT 316 130 - 400 x10'3/uL 11/14/2024 1:52 [address] [facility] MPV 9.8 9.3 - 12.2 FL 11/14/2024 1:[address] [facility] DIFFERENTIAL TYPE AUTOMATED DIFFERENTIAL 11/14/2024 1:52 [address] [facility] NEUTROPHILS % 80.0 % 11/14/2024 1:52 [address] [facility] LYMPHOCYTES % 13.9 % 11/14/2024 1:52 [address] [facility] MONOCYTES % 5.7 % 11/14/2024 1:52 AM [address] [facility] EOSINOPHILS 0.0 % 11/14/2024 1:52 [address] [facility] BASOPHILS 0.2 % 11/14/2024 1:[address] [facility] IMMATURE GRANS % 0.2 % 11/15/19 1:[address] [facility] ABS. NEUTROPHILS 10.33(H) 1.80 - 7.70 x10'3/uL 11/14/2024 1:[address] [facility] ABS. LYMPHOCYTES 1.80 1.00 - 4.80 x10'3/uL 11/14/2024 1:52 AM [address] [facility] ABS. MONOCYTES 0.74 0.30 - 0.82 x10'3/uL 11/14/2024 1:52 [address] [facility] ABS. EOSINOPHILS 0.00(L) 0.04 - 0.54 x10'3/uL 11/14/2024 1:52 [address] [facility] ABS. BASOPHILS 0.03 0.01 - 0.08 x10'3/uL 11/14/2024 1:52 AM CD[address] [facility] ABS. IMMATURE GRANULOCYTES 0.03 0.00 - 0.49 x10'3/uL 11/14/2024 1:[address] [facility] 11/14/2024 1:30 AM CDT [facility] Final Result [facility] [address] [place] [address], documented in this encounter Visit Diagnoses Diagnosis VANCE (acute kidney injury)- Primary Acute kidney failure, unspecified Vision changes Unspecified visual disturbance Bizarre behavior documented in this encounter Admitting Diagnoses Diagnosis VANCE (acute kidney injury) Acute kidney failure, unspecified documented in this encounter Administered Medications Inactive Administered Medications - up to 3 most recent administrations Medication Order MAR Action Action Date Dose Rate Site sodium chloride 0.9% bolus infusion 1,000 mL 1,000 mL, Intravenous, Administer over 30 Minutes, Once, 1 dose, On 11/14/24 at 0315 New Bag 11/14/2024 3:31 AM CDT 1,000 mLs 2000 mL/hr documented in this encounter Active and Recently Administered Medications Times are shown in CDT. Scheduled Medication Order 11/12/2024 11/13/2024 11/14/2024 sodium chloride 0.9% bolus infusion 1,000 mL (COMPLETED) 1,000 mL, Intravenous, Administer over 30 Minutes, Once, 1 dose, On 11/14/24 at 0315 [id number] (New Bag - Prov ider: Min Marquez RN)[id number] (Infusion Stop Time - Provider: Charly Mc RN) documented in this encounter Care Teams Supervisor Electron Tube Processing Relationship Specialty Start Date End Date Issa Rae MD [address] [place] [id number] PCP - General 12/04/16 documented as of this encounter
--- OUTSIDE RECORDS SUMMARY | 2024-11-14 19:38 | XMS_ITS ---
Author Organization [facility] Address [address] [place] [address] Care Team Providers Care Lead Manufacturing Engineering Tech Name Role Phone Issa Rae MD Primary Care Provider [phone] Issa Rae MD Unavailable [phone] Juwan Lima MD Unavailable Irina Galan MD Unavailable [phone] Active Problems Problem Noted Date Diagnosed Date ALONSO (obstructive sleep apnea) 07/03/2023 Assessment & Plan (03/04/2024 1:33 PM CDT): Due to continued symptoms, the patient will continue with positional therapy treat the obstructive sleep apnea. The patient is intolerant to CPAP therapy. He is not interested in the inspire. The patient is aware the risk of not treating obstructive sleep apnea adequately such as CVA, cardiovascular events, and even . Assessment & Plan (09/04/2023 1:28 PM [employer]): Patient will continue with CPAP at 14 cm water pressure due to his continued symptoms, the patient was encouraged to wear the CPAP at least 4 hours a night on 70% of the nights. Due to discrepancy from the compliance report and the patient is reporting, I have asked the patient to reach out to [employer] about the download. [facility] adapt Assessment & Plan (07/03/2023 2:04 PM [employer]): I have sent Ambien 10 mg p.o. Q HS x2 weeks. I did inform the patient that he must wear his CPAP if he is going to be using the Ambien. The patient verbalized understanding. The patient's CPAP is set at 14 cm of water pressure. I did inform the patient to call in if he has any difficulty with adjusting to the CPAP. He did verbalize understanding. Morbid (severe) obesity due to excess calories 0 03/12/2023 Encounter for follow-up surveillance of prostate cancer 02/07/2018 Prostate cancer 02/07/2018 Cancer Staging:Clinical stage from 03/01/2017:Stage I(cT1c, cN0, cM0, PSA: 6.9, Grade Group: 1) - Signed by Vesta Wagner NP on 02/07/2018 Current Treatment and Therapy Plans No current plan information found. Past Treatment and Therapy Plans No past plan information found. Lifetime Dose Tracking * Chemical Lifetime Dose Automatic Entry Manual Entr y DLP 180.9 mGycm 180.9 mGycm 0 mGycm CTDIvol 5.44 mGy 5.44 mGy 0 mGy Resolved Problems Problem Noted Date Diagnosed Date Resolved Date Snoring 04/03/2023 07/03/2023 Assessment & Plan (04/03/2023 11:22 AM CDT): The patient presents with snoring, daytime fatigue and nocturnal gasping episodes. Per his request, I have ordered a home sleep test and he will follow up here in 3 months.
--- OUTSIDE RECORDS SUMMARY | 2024-11-14 19:38 | XMS_ITS | Clinical Summary ---
Author Organization [facility] Address [facility] [place] [address] Care Team Providers Care Shrub Grower Name Role Phone Issa Rae MD Primary Care Provider [phone] Allergies Active Allergy Reactions Criticality Noted Date Comments Penicillins Hives 08/07/2018 Medications famotidine 20 MG tablet Take 20 mg by mouth 2 (two) times daily. 0 08/11/2018 Active gabapentin 100 MG capsule TK 2 CS PO TID 1 04/12/2019 Active albuterol sulfate HFA 108 (90 Base) MCG/ACT inhaler Inhale 2 puffs into the lungs every 6 (six) hours as needed for Wheezing. 8 g 11/12/2022 Active aspirin EC (ECOTRIN) 81 MG tablet Take 1 tablet (81 mg total) by mouth daily. 08/22/2023 Active baclofen (LIORESAL) 20 MG tablet Take 1 tablet (20 mg total) by mouth 3 (three) times daily. 11/25/2023 Active cetirizine (ZYRTEC) 10 MG tablet Take 1 tablet (10 mg total) by mouth daily. 11/18/2023 Active vitamin D2, ergocalciferol, (DRISDOL) 1.25 mg capsule Take 1 capsule (1.25 mg total) by mouth once a week. 11/21/2023 Active fluticasone propionate (FLONASE) 50 MCG/ACT nasal spray 1 spray by Each Nostril route 2 (two) times daily. shake liquid 10/27/2023 Active ANORO ELLIPTA 62.5-25 MCG/ACT inhaler Inhale 1 puff into the lungs daily. Active zolpidem (AMBIEN) 10 MG tablet Take 1 tablet (10 mg total) by mouth nightly as needed. 05/07/2023 Active lisinopril (PRINIVIL) 5 MG tablet Take 1 tablet (5 mg total) by mouth daily. Active Active Problems Problem Noted Date Diagnosed Date VANCE (acute kidney injury) 11/14/2024 Acute renal failure (ARF) 12/15/2023 Lumbar radiculopathy 11/05/2018 Other closed intra-articular fracture of distal end of left radius, initial encounter 10/16/2018 Encounters Date Type Department Care Team Description 11/14/2024 1:31 AM CDT - 11/14/2024 5:42 AM CDT Hospital Encounter [facility] [place] [address] Mark Villalobos MD Elayyan, MD Kailey Caba Hana, MD Islam, MD Deidre Visual Changes Discharge Disposition: Left Against Medical Advice 11/14/2024 Travel from Last 3 Months Immunizations Immunization Administration Dates Next Due Tdap (Boostrix) 05/15/2024,2022 Family History Medical History Relation Comments Heart Attack Father Stroke Mother Relation Status Comments Father Mother Social History Tobacco Use Types Packs/Day Years Used Date Smoking Tobacco: Every Day Cigarettes 2 20 Smokeless Tobacco: Never Tobacco Cessation:Ready to Q uit: Not Asked; Counseling Given: Not Answered Comments:Verbalized understanding of smoking cessation. Recomended he quit. Alcohol Use Standard Drinks/Week Comments Not Currently 6 (1 standard drink = 0.6 oz pur e alcohol) [facility] Utilities Answer Date Recorded In the past 12 months has e Narrative, gas, oil, or water eegoes threatened to shut off services in your [...] any time in the past 12 m [facility], were you homeless or living in a assisted (including now)? No 12/15/2023 Sex and Gender Information Value Date Recorded Sex Assigned at Not on file Legal Sex Male 4:25 PM CDT Gender Identity Not on file Sexual Orientation Not on file Last Filed Vital Signs Vital Sign Reading [...] Mass Index 35.27 11/14/2024 12:49 AM CDT Plan of Treatment Health Maintenance Due Date Last Done Comments Colorectal Cancer Screening Colonoscopy (10 Years) 1960 Annual Physical 1963 Hepatitis C 1978 Pneumococcal Vaccine: 50+ Years (1 of 2 - PCV) 1979 Zoster Vaccines (1 of 2) 2010 Lung Cancer Screening 03/18/2018 03/18/2017 COVID-19 Vaccine (1 - 2023-2 5 season) 2024 DTaP, Tdap and Td Vaccines ( 4 - Td or Tdap) 05/15/2034 05/15/2024, 2022, 02/22/2017 RSV Immunization or 60+ Years (1 - 1-dose 75+ series) 2035 Meningococcal B Vaccine Aged Out No l onger eligible based on patient's age to complete this topic Meningococcal Vaccine Aged Out No wiilan yaima eligible based on patient's age to complete this topic RSV Immunizations Under 20 Months Aged Out No longer eligible b ased on patient's age to complete this topic Procedures Procedure Name Priority Date/Time Associated Diagnosis Comments DRUG SCREEN RAPID STAT 11/14/2024 3:3 0 AM CDT URINALYSIS STAT 11/14/2024 3:[address] HEAD WO CON STAT 11/14/2024 2:23 AM CDT ECG 12-LEAD Routine 11/14/2024 1:39 AM CDT TROPONIN, QUANT STAT 11/14/2024 1:30 AM CDT COMPREHENSIVE METABOLIC PANEL STAT 11/14/2024 1:30 AM CDT CBC W/DIFF AUTOMATED STAT 11/14/2024 1:30 AM CDT from Last 3 Months Results * (ABNORMAL) DRUG SCREEN RAPID (11/14/2024 3:30 AM CDT) Pathologist [facility] AMPHETAMINE (U) NEGATIVE NEGATIVE 4:05 AM CDT [facility] BARBITURATES SCREEN (U) NEGATIVE NEGATIVE 11/14/2024 4:05 AM CDT [facility] BENZODIAZEPINES SCREEN (U) NEGATIVE NEGATIVE 11/14/2024 4:05 AM CDT [facility] CANNABINOIDS SCREEN (U) NEGATIVE NEGATIVE 11/14/2024 4:05 AM CDT [facility] COCAINE METABOLITES (U) NEGATIVE NEGATIVE 11/14/2024 4:05 AM CDT [facility] METHADONE (U) NEGATIVE NEGATIVE 11/14/2024 4:05 AM CDT [facility] OPIATE SCREEN (U) POSITIVE(A) NEGATIVE 2024 4:05 AM CDT [facility] PHENCYCLIDINE PCP (U) NEGATIVE NEGATIVE 11/14/2024 4:05 AM CDT [facility] Comment: NOTE: RESULTS OF THIS DRUG SCREEN SHOULD BE USED FOR MEDICAL PURPOSES ONLY AND NOT FOR LEGAL OR EMPLOYMENT PURPOSES. POSITIVE RESULTS ARE NOT CONFIRMED. MEDICATIONS CONTAINING EPHEDRINE MAY CAUSE FALSE POSITIVE AMPHETAMINE CALL [phone], LAB, TO REQUEST CONFIRMATION TESTING. IF CREATININE IS <40 mg/dL. RECOLLECTION IS SUGGESTED. AMPHETAMINE- 500 NG/ML BARBITURATE- 200 NG/ML BENZODIAZEPINES- 200 NG/ML THC- 50 NG/ML COCAINE- 150 NG/ML METHADONE- 300 NG/ML OPIATE- 300 MG/ML PCP- 25 NG/ML CREATININE (U) >400.0(H) 39 - 259 MG/DL 11/14/2024 4:05 AM CDT [facility] URINE SPECIMEN / Unknown 11/14/2024 3:30 AM CDT Mark Villalobos MD URINE ORDERABLES Final Result [facility] [address] [place] [address], * (ABNORMAL) URINALYSIS (11/14/2024 3:30 AM CDT) SPECIMEN TYPE URINE CLEAN CATCH 11/14/2024 3:29 AM CDT [facility] COLOR (U) YELLOW 11/14/2024 3:52 AM CDT [facility] TRANSPARENCY CLEAR 11/14/2024 3:52 AM CDT [facility] SPECIFIC GRAVITY (U) 1.029 1.001 - 1.030 11/14/2024 3:52 AM CDT [facility] U PH 5.5 5.0 - 9.0 11/14/2024 3:52 AM CDT [facility] LEUKOCYTES (U) NEGATIVE NEGATIVE 11/14/2024 3:52 AM CDT [facility] NITRITES NEGATIVE NEGATIVE 11/14/2024 3:52 AM CDT [facility] PROTEIN RANDOM (U) 70(H) <30 MG/DL 11/14/2024 3:52 AM CDT [facility] GLUCOSE (U) NORMAL NORMAL MG/DL 11/14/2024 3:52 AM CDT [facility] KETONES MG/DL (U) TRACE(A) NEGATIVE MG/DL 11/14/2024 3:52 AM CDT [facility] UROBILINOGEN 2.0(A) NORMAL MG/DL 11/14/2024 3:52 AM CDT [facility] BILIRUBIN (U) NEGATIVE NEGATIVE MG/DL 11/14/2024 3:52 AM CDT [facility] BLOOD (U) NEGATIVE NEGATIVE 11/14/2024 3:52 AM CDT [facility] MUCUS FEW /LPF 11/14/2024 3:52 AM CDT [facility] HYALINE CASTS MANY /LPF 11/14/2024 3:52 AM CDT [facility] WBC/HPF 5 <6 /HPF 11/14/2024 3:52 AM CDT [facility] RBC/HPF 6(H) <6 /HPF 11/14/2024 3:52 AM CDT [facility] SQUAMOUS EPITHELIALS RARE /HPF 11/14/2024 3:52 AM CDT [facility] URINE SPECIMEN OBTAINED BY CLEAN CATCH PROCEDURE / Unknown 11/14/2024 3:30 AM CDT [facility] URINE ORDERABLES Final Result [facility] [address] [place] [address], [place] [phone] * CT HEAD WO CON (11/14/2024 2:23 AM CDT) Anatomical Region Laterality Modality Head Computed Tomogra phy 11/14/2024 2:27 AM CDT Impressions 11/14/2024 2:29 AM CDT IMPRESSION: No CT evidence of an acute intracranial abnormality. Referred By: Interpreted By: Ricky Yeh MD, 11/14/2024 2:27 AM Narrative 11/14/2024 2:29 AM CDT [facility] [address] [place], [place] [address] EXAMINATION: CT HEAD WO CON, 11/14/2024 2:27 [...] Procedure Note Ricky Yeh MD - 11/14/[address] [address] EXAMINATION: CT HEAD WO CON, 11/14/2024 2:27 [...] AM CDT) 11/14/2024 1:39 AM CDT Narrative [facility] - 11/14/2024 2:26 PM CDT [employer] [address] Test Date: 2024-11-14 Pat Name: DONN HUNTLEY Department: 41 Room: GAMA Gender: Male College Sports Coach: : 1960 Requested By: LEONILA PALACIO Order Number: [id number] Reading MD: Conrado Abdullahi Measurements Intervals [place] Rate: 92 P: 42 UT: 158 QRS: 60 QRSD: 86 T: 63 QT: 330 QTc: 409 Interpretive Statements SINUS RHYTHM Compared to ECG 12/14/2023 22:16:44 No significant changes Other ischemic changes, not STEMI Preliminary EKG Interpretation by Mark Villalobos M.D. Procedure Note Conrado Abdullahi MD - 11/14/2024 [employer] [address] Test Date: 2024-11-14 Pat Name: DONN HUNTLEY Department: 41 Room: GAMA Gender: Male College Sports Coach: : 1960 Requested By: LEONILA PALACIO Order Number: [id number] Reading AMANDA Abdullahi Measurements Intervals [place] Rate: 92 P: 42 UT: 158 QRS: 60 QRSD: 86 T: 63 QT: 330 QTc: 409 Interpretive Statements SINUS RHYTHM Compared to ECG 12/14/2023 22:16:44 No significant changes Other ischemic changes, not STEMI Preliminary EKG Interpretation by Mark Villalobos M.D. us [facility] ECG ORDERABLES Final Result [facility] * (ABNORMAL) COMPREHENSIVE METABOLIC PANEL (11/14/2024 1:30 AM CDT) [facility] GLUCOSE 135(H) 70 - 99 MG/DL 11/14/2024 2:06 AM CDT [facility] BUN 39(H) 7 - 18 MG/DL 11/14/2024 2:06 AM CDT [facility] CREATININE S/P/B 2.76(H) 0.7 - 1.3 MG/DL 11/14/2024 2:06 AM CDT [facility] SODIUM S/P/B 139 136 - 145 MMOL/L 11/14/2024 2:06 AM CDT [facility] POTASSIUM S/P/B 4.0 3.5 - 5.1 MMOL/L 11/14/2024 2:06 AM CDT [facility] CHLORIDE S/P/B 109 97 - 115 MMOL/L 11/14/2024 2:06 AM CDT [facility] CO2 23.4 21 - 32 MMOL/L 11/14/2024 2:06 AM CDT [facility] CALCIUM S/P/B 9.1 8.5 - 10.1 MG/DL 11/14/2024 2:06 AM CDT [facility] BILIRUBIN TOTAL S/P/B 0.8 0.2 - 1.2 MG/DL 11/14/2024 2:06 AM CDT [facility] Comment: THIS ASSAY IS NOT RECOMMENDED FOR PATIENTS UNDERGOING TREATMENT WITH ELTROMBOPAG DUE TO THE POTENTIAL FOR FALSELY ELEVATED RESULTS. TOTAL PROTEIN S/P/B 8.6(H) 6.4 - 8.2 G/DL 11/14/2024 2:06 AM T [facility] ALBUMIN S/P/B 4.3 3.4 - 5.0 G/DL 11/14/2024 2:06 AM CDT [facility] AST 18 15 - 37 U/L 11/14/2024 2:06 AM CDT [facility] ALT 30 16 - 60 U/L 11/14/2024 2:06 AM CDT [facility] ALKALINE PHOSPHATASE S/P/B 69 50 - 136 U/L 11/14/2024 2:06 AM T [facility] ANION GAP 6.6 2 - 10 MMOL/L 11/14/2024 2:06 AM T [facility] BUN CREATININE RATIO 14.1 6 - 11/14/2024 2:06 AM T [facility] A/G RATIO 1.0 1.0 - 2.0 RATIO 11/14/2024 2:06 AM T [facility] GFR ESTIMATE 25(L) >90 ML/MIN/1.7 3 M2 11/14/2024 2:06 AM T [facility] Comment: NOTE: eGFR is not calculated for patients <18 years of age or gender unknown. This is an estimated GFR calculation using the new CKD EPI creatinine equation without race and so does not require a correction factor for race. This estimated GFR should not be used for calculating drug doses. 11/14/2024 1:30 AM CDT [facility] Final Result [facility] [address] [place] [address], * (ABNORMAL) CBC W/DIFF AUTOMATED (11/14/2024 1:30 AM CDT) [facility] WBC 12.93(H) 4.5 - 11.0 x10'3/uL 11/14/2024 1:52 AM CDT [facility] RBC 4.92 4.70 - 6.10 x10'6/uL 11/14/2024 1:52 AM CDT [facility] HGB 16.7 14.0 - 18.0 G/DL 11/14/2024 1:52 AM CDT [facility] HCT 49.6 43.0 - 54.0 % 11/14/2024 1:52 AM CDT [facility] MCV 100.8(H) 80.0 - 94.0 FL 11/14/2024 1:52 AM CDT [facility] MCH 33.9(H) 27.0 - 31.0 PG 11/14/2024 1:52 AM CDT [facility] MCHC 33.7 32.0 - 36.0 G/DL 11/14/2024 1:52 AM CDT [facility] RDW 12.6 11.5 - 14.5 % 11/14/2024 1:52 AM CDT [facility] PLT 316 130 - 400 x10'3/uL 11/14/2024 1:52 AM CDT [facility] MPV 9.8 9.3 - 12.2 FL 11/14/2024 1:52 AM CDT [facility] DIFFERENTIAL TYPE AUTOMATED DIFFERENTIAL 11/14/2024 1:52 AM CDT [facility] NEUTROPHILS % 80.0 % 11/14/2024 1:52 AM CDT [facility] LYMPHOCYTES % 13.9 % 11/14/2024 1:52 AM CDT [facility] MONOCYTES % 5.7 % 11/14/2024 1:52 AM CDT [facility] EOSINOPHILS 0.0 % 11/14/2024 1:52 AM CDT [facility] BASOPHILS 0.2 % 11/14/2024 1:52 AM CDT [facility] IMMATURE GRANS % 0.2 % 11/15/19 1:52 AM CDT [facility] ABS. NEUTROPHILS 10.33(H) 1.80 - 7.70 x10'3/uL 11/14/2024 1:52 AM CDT [facility] ABS. LYMPHOCYTES 1.80 1.00 - 4.80 x10'3/uL 11/14/2024 1:52 AM CDT [facility] ABS. MONOCYTES 0.74 0.30 - 0.82 x10'3/uL 11/14/2024 1:52 AM CDT [facility] ABS. EOSINOPHILS 0.00(L) 0.04 - 0.54 x10'3/uL 11/14/2024 1:52 AM CDT [facility] ABS. BASOPHILS 0.03 0.01 - 0.08 x10'3/uL 11/14/2024 1:52 AM CDT [facility] ABS. IMMATURE GRANULOCYTES 0.03 0.00 - 0.49 x10'3/uL 11/14/2024 1:52 AM CDT [facility] 11/14/2024 1:30 AM CDT [facility] Final Result [facility] [address] [place] [address], * TROPONIN, QUANT (11/14/2024 1:30 AM CDT) TROPONIN I HIGH SENSITIVITY 30 <79 ng/L 11/14/2024 2:06 AM CDT [facility] Comment: HIGH DOSES OF BIOTIN, TROPONIN-SPECIFIC AUTOANTIBODIES, AND ANTIBODY THERAPY CONTAINING HAMA MAY INTERFERE WITH THIS TEST RESULT. CORRELATION TO CLINICAL HISTORY AND PRESENTATION RECOMMENDED. 11/14/2024 1:30 AM CDT [facility] Final Result [facility] [address] [place] [address], from Last 3 Months Insurance [employer] Directives * Full Code (Latest Code Status on File) Date Activated Date Inactivated Comments 12/15/2023 1:07 AM 12/17/2023 11:45 AM Care Teams Shrub Grower Relationship Specialty Start Date End Date Issa Rae MD [address] [place] [address] PCP - General 12/04/16
--- OUTSIDE RECORDS SUMMARY | 2024-11-14 19:38 | XMS_ITS | Encounter Summary ---
Author Organization [facility] Healthcare Address [address] [place] [address] Care Team Providers Care Health Information Systems Technician Name Role Phone Issa Rae MD Primary Care Provider Issa Rae MD Unavailable [phone] Juwan Lima MD Unavailable [phone] Irina Galan MD Unavailable [phone] Reason for Visit * Reason Comments Eye Problem Encounter Details Date Type Department Care Team (Late st Contact Info) Description 11/13/2024 10:22 PM CDT - 11/13/2024 11:48 PM CDT Emergency [address] [address] Discharge Disposition: Left Against Medical Advice Social History Tobacco Use Types Packs/Day Years Used Date Smoking Tobacco: Every Day Cigarettes 1.5 39.3 Started: 1985 Smokeless Tobacco: Never Comments:Hx obtained from lung screen form Alcohol Use Standard Drinks/Week Comments Yes 0 (1 standard drink = 0.6 oz pur e alcohol) social Personal Safety Answer Date Recorded Have you ever been in or are you currently in a harmful physical or emotional relationship or is someone making you feel afraid or unsafe? Denies 11/13/2024 Sex and Gender Information Value Date Recorded Sex Assigned at Not on file Legal Sex Male 12:54 PM CDT Gender Identity Not on file Sexual Orientation Not on file Occupation Industry Job Start Date Job End Date disabled Not on file Not on file Not on file documented as of this encounter Last Filed Vital Signs Vital Sign Reading Time Taken Comments Blood Pressure 164/88 11/13/2024 10:26 PM CDT Pulse 104 11/13/2024 10:26 PM CDT Temperature 36.8 C (98.2 F) 11/13/2024 10:26 PM CDT Respiratory Rate 18 11/13/2024 10:26 PM CDT Oxygen Saturation 94% 11/13/2024 10:26 PM CDT Inhaled Oxygen Concentration - - Weight 108.9 kg (240 lb) 11/13/2024 10:36 PM CDT Height - - Body Mass Index 34.44 09/21/2024 1:11 PM SOCIAL WORKER PSYCHIATRIC documented in this encounter Medications at Time of Discharge aspirin 81 mg enteric coated tablet Take 1 tablet (81 mg total) by mouth daily 08/22/2023 atorvastatin (LIPITOR) 80 mg tablet Take 1 tablet (80 mg total) by mouth nightly 11/30/2022 baclofen (LIORESAL) 20 mg tablet 04/15/2020 cetirizine (ZyrTEC) 10 mg tablet Take 1 tablet (10 mg total) by mouth daily 10/07/2020 ergocalciferol (VITAMIN D) 50,000 unit capsule Take 1 capsule (50,000 Units total) by mouth once a week 08/22/2023 famotidine (PEPCID) 20 mg tablet 03/20/2020 fluticasone propionate (FLONASE) 50 mcg/actuation nasal spray Administer 1 spray into affected nostril(s) 2 (two) times a day 07/31/2020 gabapentin (NEURONTIN) 100 mg capsule TK 2 CS PO TID 06/08/2019 ibuprofen (ADVIL,MOTRIN) 800 mg tablet Take 1 tablet (800 mg total) by mouth 3 (three) times a day 02/19/2023 lisinopriL (PRINIVIL,ZESTRI L) 5 mg tablet Take 1 tablet (5 mg total) by mouth daily 07/19/2023 documented as of this encounter Discharge Disposition Disposition Code Departure Means Destination Left Against Medical Advice documented in this encounter ED Notes * Laquita Solis, ANKIT - 11/13/2024 11:00 PM CDT Patient is refusing to be seen stating that the information technology security analyst and the registration woman are hisneighbors. Patient was reassured they are not the people he believes that are. Patient is adamant he does not want to be seen here stating he [facility] to go to [facility]. Laquita Solis RN 11/13/24 [id number] * Laquita Solis RN - 11/13/2024 10:32 PM CDT Patient BIBEMS from PD. Patient states that has been having his vision going in and out. Patient states that yesterday he also slept yesterday for 12 hours which is unusual for him. Patient states his vision has done this before and he ended up getting stents in his neck. Stroke scale negative. A&Ox4 Patient took a 500mg Vicodin today not his prescription documented in this encounter Plan of Treatment Not on file documented as of this encounter Visit Diagnoses Not on filedocumented in this encounter Care Teams Health Information Systems Technician Relationship Specialty Start Date End Date Issa Rae MD [address] [place] [address] PCP - General 03/04/17 Issa Rae MD [address] [place] [address] 03/04/17 Juwan Lima MD [address] [place] [address] Radiation Oncologist Radiation Oncology 02/07/18 Irina Galan MD [address] [place] [address] Referring Physician Urology 02/07/18 documented as of this encounter
--- OUTSIDE RECORDS SUMMARY | 2024-11-14 19:38 | XMS_ITS | Clinical Summary ---
Author Organization [facility] Address [address] [place] [address] Care Team Providers Care Share Dairy Farmer Name Role Phone Issa Rae MD Primary Care Provider [phone] Issa Rae MD Unavailable [phone] Juwan Lima MD Unavailable [phone] Irina Galan MD Unavailable [phone] Allergies Active Allergy Reactions Criticality Noted Date Comments Penicillins Hives,Urticaria Medium 11/29/2015 Medications baclofen (LIORESAL) 20 mg tablet 0 Active famotidine (PEPCID) 20 mg tablet 0 Active gabapentin (NEURONTIN) 100 mg capsule TK 2 CS PO TID 9 Active fluticasone propionate (FLONASE) 50 mcg/actuation nasal spray Administer 1 spray into affected nostril(s) 2 (two) times a day 1 Active cetirizine (ZyrTEC) 10 mg tablet Take 1 tablet (10 mg total) by mouth daily 1 Active atorvastatin (LIPITOR) 80 mg tablet Take 1 tablet (80 mg total) by mouth nightly 3 Active ibuprofen (ADVIL,MOTRIN) 800 mg tablet Take 1 tablet (800 mg total) by mouth 3 (three) times a day 3 Active ergocalciferol (VITAMIN D) 50,000 unit capsule Take 1 capsule (50,000 Units total) by mouth once a week 4 Active aspirin 81 mg enteric coated tablet Take 1 tablet (81 mg total) by mouth daily 4 Active lisinopriL (PRINIVIL,ZESTR IL) 5 mg tablet Take 1 tablet (5 mg total) by mouth daily 3 Active umeclidinium-vi lanteroL (Anoro Ellipta) 62.5-25 mcg/actuation blister with deviceIndicatio ns:Snoring Inhale 1 puff daily 60 each 4 Active albuterol HFA (PROVENTIL HFA,VENTOLIN HFA,PROAIR HFA) 90 mcg/actuation inhaler Inhale 2 puffs every 6 (six) hours as needed for wheezing 1 each 4 Active Breztri Aerosphere 160-9-4.8 mcg/actuation inhaler Inhale 2 puffs 2 (two) times a day Rinse mouth after use 1 g 11 5 Active Active Problems Problem Noted Date Diagnosed [...] . Assessment & Plan (09/04/2023 1:28 PM PROMOTIONAL ADVERTISING ASSISTANT): Patient will continue with CPAP at 14 cm water pressure due to his continued symptoms, the patient was encouraged to wear the CPAP at least 4 hours a night on 70% of the nights. Due to discrepancy from the compliance report and the patient is reporting, I have asked the patient to reach out to [employer] about the download. [facility] [place] adapt Assessment & Plan (07/03/2023 2:04 PM PROMOTIONAL ADVERTISING ASSISTANT): I have sent Ambien 10 mg p.o. [...] Signed by Vesta Wagner NP on 02/07/2018 Resolved Problems Problem Noted Date Diagnosed Date Resolved Date Snoring 04/03/2023 07/03/2023 Assessment & Plan (04/03/2023 11:22 AM CDT): The patient presents with snoring, daytime fatigue and nocturnal gasping episodes. Per his request, I have ordered a home sleep test and he will follow up here in 3 months. Encounters Date Type Department Care Team Description 11/13/2024 10:22 PM CDT - 11/13/2024 11:48 PM CDT Emergency [address] [address] Discharge Disposition: Left Against Medical Advice 09/23/2024 Telephone [facility] Medical [facility] Pulmonology [address] [place] [address] [place] [phone] Andrea Murillo MD 09/21/2024 1:30 PM PROMOTIONAL ADVERTISING ASSISTANT Office Visit [facility] Pulmonology [address] [place] [address] [place] [phone] Andrea Murillo MD ALONSO (obstructive sleep apnea) (Primary Dx); Nicotine dependence, cigarettes, uncomplicated; Chronic obstructive pulmonary disease, unspecified COPD type (HCC); Encounter for screening for lung cancer from Last 3 Months Surgical History Surgery Date Site/Laterality Comments FOOT SURGERY 07/22/2015 - 07/21/2016 Right Medical History Medical History Date Comments Peripheral neuropathy Hypertension Cancer (HCC) prostate GERD (gastroesophageal reflux disease) Lumbar spondylosis Family History Medical History Relation Name Comments Arthritis Father Heart disease Father Arthritis Mother Diabetes Mother Heart disease Mother Stroke Mother Relation Name Status Comments Father Mother Social History Tobacco Use Types Packs/Day Years Used Date Smoking Tobacco: Every Day Cigarettes 1.5 39.3 Started: 1985 Smokeless Tobacco: Never Tobacco Cessation:Ready to Q uit: Not Asked; Counseling Given: Not Answered Comments:Hx obtained from 2022 lung screen form Alcohol Use Standard Drinks/Week [...] file Not on file Not on file Obstetrics History Last Filed Vital Signs Vital Sign Reading Time Taken Comments Blood Pressure 164/88 11/13/2024 10:26 PM CDT Pulse 104 11/13/2024 10:26 PM CDT Temperature 36.8 C (98.2 F) 11/13/2024 10:26 PM CDT Respiratory Rate 18 11/13/2024 10:26 PM CDT Oxygen Saturation 94% 11/13/2024 10:26 PM CDT Inhaled Oxygen Concentration - - Weight 108.9 kg (240 lb) 11/13/2024 10:36 PM CDT Height 177.8 cm (5' 10 ) 09/21/2024 1:11 PM PROMOTIONAL ADVERTISING ASSISTANT Body Mass Index 34.44 09/21/2024 1:11 PM PROMOTIONAL ADVERTISING ASSISTANT Plan of Treatment Health Maintenance Due Date Last Done Comments Colon Cancer Screening-Colonoscopy 1960 Depression Screening 1960 Hepatitis C Screening 1960 Hepatitis B Screening 1978 Regular Well Visit/Exam 18-64 1978 Pneumococcal vaccine <65 (1 of 2 - PCV) 1979 Zoster Vaccine (1 of 2) 2010 Prostate Cancer Screening-PSA 01/24/2020, 09/18/2017, 06/26/2017, Additional history exists Lung Cancer Screening 02/25/2025 02/25/2024, 023 Influenza Vaccine (Season Ended) 2025 07/05/20 20, 05/02/2020 DTaP/Tdap/Td Vaccine (4 - Td or Tdap) 05/15/2034 05/15/2024, 2022, 02/22/2017 Procedures Procedure Name Priority Date/Time Associated Diagnosis Comments CT LUNG CANCER SCREENING Schedule Routine, Read Routine (OP Routine) 02/25/2024 2:24 PM CDT Nicotine dependence, cigarettes, uncomplicated PSA DIAGNOSTIC Routine 01/23/2018 9:59 AM CDT from Last 3 Months or Most Recently Relevant to Health Maintenance Results * CT Lung Cancer Screening (02/25/2024 2:24 PM CDT) Anatomical Region Laterality Modality Chest N/A Computed Tomogra phy 02/26/2024 5:37 PM CDT Narrative 02/26/2024 5:48 PM CDT EXAM DESCRIPTION: CT LUNG CANCER SCREENING REASON FOR STUDY: Screening CT of the chest in a current smoker with a 30 pack year smoking history. Additional history: None. TECHNIQUE: Low dose CT scan of the chest was performed without intravenous contrast using helical scanning technique. The exam extends from the lung apices through the lung bases. Automatic exposure control was used as a dose optimization technique. NOTE: This study was performed for the specific purposes of lung cancer screening and is not an alternative to diagnostic chest CT. RADIATION DOSE: CT dose index volume (CTDIvol) = 2.48 mGy COMPARISON: CT chest 02/14/2023 FINDINGS: SMOKING RELATED LUNG DISEASE: Mild emphysema. LUNG NODULES: 3 mm nodule in the right upper lobe centrally on image 90 has decreased in size, previously measuring 4 mm. Unchanged 4 mm pulmonary nodule in the right upper lobe on image 135. A previously described 2 mm left upper lobe pulmonary nodule is not seen. Unchanged 3 mm nodule in the left upper lobe on image 99. CORONARY ARTERY CALCIFICATION: Positive OTHER: No pleural effusion or pneumothorax. Central airways are patent. Heart size is normal. No pericardial effusion or thickening. Thoracic aorta is normal in course and caliber and contains a small amount of calcified atherosclerotic plaque. No enlarged mediastinal, hilar, or axillary lymph nodes. Visualized portions of the upper abdomen are unremarkable. There is no suspicious osseous lesion. IMPRESSION: 1. Stable to decreased size of pulmonary nodules measuring up to 4 mm. No new or enlarging pulmonary nodule. 2. Mild emphysema. Lung-RADS category 2: Benign appearance or behavior. Recommendation: Low dose Screening CT of chest in 12 months. THIS IS AN ELECTRONICALLY VERIFIED FINAL REPORT 02/26/2024 5:48 PM - Electronically signed by Sudeep Hawley M.D. AM T: Report ID: [id number] Reading Location: [place] [address] Procedure Note Sudeep Hawley MD - 02/26/2024 EXAM DESCRIPTION: CT LUNG CANCER SCREENING REASON FOR STUDY: Screening CT of the chest in a current smoker with a30 pack year smoking history. Additional history: None. TECHNIQUE: Low dose CT scan of the chest was performed without intravenous contrast using helical scanning technique. The exam extends from the lung apices through the lung bases. Automatic exposure control was used as adose optimization technique. NOTE: This study was performed for the specific purposes of lung cancer screening and is not an alternative to diagnostic chest CT. RADIATION DOSE: CT dose index volume (CTDIvol) = 2.48 mGy COMPARISON: CT chest 02/14/2023 FINDINGS: SMOKING RELATED LUNG DISEASE: Mild emphysema. LUNG NODULES: 3 mm nodule in the right upper lobe centrally on image 90has decreased in size, previously measuring 4 mm. Unchanged 4 mm pulmonarynodule in the right upper lobe on image 135. A previously described 2 mm leftupper lobe pulmonary nodule is not seen. Unchanged 3 mm nodule in the leftupper lobe on image 99. CORONARY ARTERY CALCIFICATION: Positive OTHER: No pleural effusion or pneumothorax. Central airways are patent. Heart size is normal. No pericardial effusion or thickening. Thoracicaorta is normal in course and caliber and contains a small amount of calcified atherosclerotic plaque. No enlarged mediastinal, hilar, or axillary lymph nodes. Visualized portions of the upper abdomen are unremarkable. Thereis no suspicious osseous lesion. IMPRESSION: 1. Stable to decreased size of pulmonary nodules measuring upto 4 mm. No new or enlarging pulmonary nodule. 2. Mild emphysema. Lung-RADS category 2: Benign appearance or behavior. Recommendation: Low dose Screening CT of chest in 12 months. THIS IS AN ELECTRONICALLY VERIFIED FINAL REPORT 02/26/2024 5:48 PM - Electronically signed by Sudeep Hawley M.D. AM T: Report ID: [id number] Reading Location: [id number] Andrea Murillo MD IMG CT PROCEDURES Final Resu lt * PSA diagnostic (01/23/2018 9:59 AM CDT) PSA,TOTAL DIAGNOSTIC 3.1 0.0 - 3.9 ng/mL Comment: Method: ECLIA Values obtained by different assay methods cannot be used interchangeably. Use sequential testing to confirm baseline if assay method changed during patient monitoring. 01/23/2018 9:59 AM CDT 01/23/2018 10:29 AM CDT us Juwan Lima MD LAB BLOOD ORDERABLES Final Result [facility] HISTORICAL RESULTS from Last 3 Months or Most Recently Relevant to Health Maintenance Insurance [facility] Care Teams Share Dairy Farmer Relationship Specialty Start Date End Date Issa Rae MD [address] [place] [address] PCP - General 03/04/17 Issa Rae MD [address] [place] [address] 03/04/17 Juwan Lima MD [address] [address] [place] [address] Radiation Oncologist Radiation Oncology 02/07/18 Irina Galan MD [address] [place] [address] Referring Physician Urology 02/07/18
--- OUTSIDE RECORDS SUMMARY | 2024-11-14 19:38 | XMS_ITS | Encounter Summary ---
Author Organization [facility] Health Address [address] [facility] [place] [address] Care Team Providers Care Ferry Terminal Supervisor Name Role Phone Issa Rae MD Primary Care Provider [phone] Encounter Details Date Type Department Care Team (Late st Contact Info) Description 02/27/2022 Ophth Exam [facility] [address] [facility], [place] [phone] Mayte Arzola MD [facility] [phone] Social History Tobacco Use Types Packs/Day Years Used Date Smoking Tobacco: Every Day Cigarettes 1 40.3 Started: 1984 Smokeless Tobacco: Never Comments:Wants to quit. Disc uss options for cessation meds. Alcohol Use Standard Drinks/Week Comments Yes 0 (1 standard drink = 0.6 oz pur e alcohol) AUDIT-C Answer Date Recorded Q1: How often do you have a drink containing alc ohol? 2-4 times a month 02/28/2022 Q2: How many drinks containi ng alcohol do you have on a typical day when you are drinking? 10 or more 02/28/2022 Q3: How often do you have si x or more drinks on one occasion? 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 2-4 times a month 02/28/2022 4:37 PM Sanaz Chiu RN Q2: How many drinks containing alcohol do you have on a typical day when you are drinking? 10 or more 02/28/2022 4:37 PM Sanaz Chiu RN Q3: How often do you have six or more drinks on one occasion? Weekly 02/28/2022 4:37 PM Sanaz Chiu RN * Audit-C Score Answer Date of Assessment Author 9 02/28/2022 4:37 PM Ale Chiu RN documented as of this encounter Plan of Treatment Not on file documented as of this encounter Visit Diagnoses Not on filedocumented in this encounter Care Teams Ferry Terminal Supervisor Relationship Specialty Start Date End Date Issa Rae MD PCP - General Internal Medicine 09/27/15 documented as of this encounter
--- OUTSIDE RECORDS SUMMARY | 2024-11-14 19:38 | XMS_ITS | Clinical Summary ---
Author Organization [facility] [employer] Address [address] [place] [address] Care Team Providers Care Computer Aided Drafter Name Role Phone Issa Rae MD Primary Care Provider [phone] Source Comments [facility] [employer],non-owned Affiliates and Associated Physician Practices is amultiple site organization consisting of ambulatory clinics and hospital sitesin [place], [place] and [place]. This disclosure is being madepursuant to the Care Everywhere program and may not contain all information available regarding this patient. Last updated 18.[facility] [employer] Allergies Active Allergy Reactions Criticality Noted Date Comments Penicillins Urticaria Medium 11/29/2015 Medications * Be aware that medications may not be up to date on this document. Alwaysverify current medications with the patient. gabapentin (NEURONTIN) 100 MG capsule TK 2 CS PO TID 1 06/08/2019 Active baclofen (LIORESAL) 20 MG tablet Take 1 (one) tablet by mouth once daily as needed 04/15/2020 Active fluticasone propionate (FLONASE) 50 MCG/ACT nasal spray [place] 1 (one) spray into each nostril 2 times daily 07/31/2020 Active famotidine (PEPCID) 20 MG tablet Take 1 (one) tablet by mouth 2 times daily 10/07/2020 Active cetirizine (ZYRTEC) 10 MG tablet Take 1 (one) tablet by mouth once daily 10/07/2020 Active lisinopril (PRINIVIL;ZESTR IL) 5 MG tablet Take 1 (one) tablet by mouth once daily 12/23/2020 Active atorvastatin (Lipitor) 80 MG tablet Take 1 (one) tablet by mouth at bedtime 90 tablet 3 03/02/2022 Active aspirin (Aspirin) 81 MG chew tabletIndicatio ns:Stenosis of left carotid artery Take 1 (one) tablet by mouth once daily 90 tablet 3 10/24/2022 Active Active Problems Problem Noted Date Diagnosed Date Vision loss of left eye 02/27/2022 Stenosis of left carotid artery 02/27/2022 Tobacco use disorder 08/16/2019 Spinal stenosis of lumbar re gion with neurogenic claudication 06/17/2019 Lumbar radiculopathy 11/05/2018 Closed fracture of left distal radius 10/16/2018 Encounter for follow-up surveillance of prostate cancer 02/07/2018 Prostate cancer 02/07/2018 SI (sacroiliac) pain 05/26/2017 Closed fracture of right orbit with routine heal ing 04/12/2017 Closed fracture of nasal bones 03/26/2017 Right foot pain 10/07/2015 Tendinitis of foot 10/07/2015 Resolved Problems Problem Noted Date Diagnosed Date Resolved Date Degenerative disc disease, lumbar 07/02/2017 08/16/2019 Encounters Date Type Department Care Team Description 11/09/2024 Telephone [facility] - Centralized Scheduling [facility] [facility] [place] [address] Suzi Mclean PA-C MEDICATION REFILL from Last 3 Months Immunizations Immunization Administration Dates Next Due INFLUENZA VACCINE 07/05/2020 INFLUENZA VACCINE, QUADR. (A FLURIA, FLUZONE QUADRIVALENT; 6MO+) (IIV4) 05/02/2020 TDAP, HISTORIC VACCINE 02/22/2017 Family History Medical History Relation Name Comments Hypertension Father CVA Mother Diabetes - Type 1 Mother Hypertension Mother Relation Name Status Comments Father Mother Social History Tobacco Use Types Packs/Day Years Used Date Smoking Tobacco: Every Day Cigarettes 1 40.3 Started: 1984 Smokeless Tobacco: Never Tobacco Cessation:Ready to Q uit: Not Asked; Counseling Given: Not Answered Comments:Wants to quit. Discuss options for cessation meds. 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 Gender Identity Not on file Sexual Orientation Not on file Last Filed Vital Signs Vital Sign Reading Time Taken Comments Blood Pressure 150/80 10/24/2022 10:53 AM CDT Pulse 82 10/24/2022 10:53 AM CDT Temperature 36.7 C (98 F) 03/02/2022 8:00 AM CDT Respiratory Rate 12 10/24/2022 10:53 AM CDT Oxygen Saturation 95% 03/02/2022 8:00 AM CDT Inhaled Oxygen Concentration - - Weight 117.9 kg (260 lb) 10/24/2022 10:53 AM CDT Height 175.3 cm (5' 9 ) 03/28/2022 10:52 AM CDT Body Mass Index 38.4 03/28/2022 10:52 AM CDT Plan of Treatment Health Maintenance Due Date Last Done Comments COLOGUARD (AGES 45-75) - COLON CA SCREENING 1960 COLON MONITORING 1960 COLONOSCOPY - COLON CA SCREENING 1960 CT COLONOGRAPHY - COLON CA SCREENING 1960 Colorectal Cancer Screening 1960 FIT - COLON CA SCREENING 1960 FLEX SIG - COLON CA SCREENING 1960 HIV SCREENING 1975 HEPATITIS C SCREENING 03/26/1978 PNEUMOCOCCAL VACCINE 50+ (1 of 2 - PCV) 1979 ZOSTER VACCINE (1 of 2) 2010 COVID-19 VACCINE ( - season) 2024 DEPRESSION SCREENING 07/22/2024 02/27/2022 SCREENING FOR DIABETES 03/02/2025 2, 03/01/2022, 02/28/2022, Additional history exists INFLUENZA VACCINE (Season Ended) 2025 07/05/2020, 05/02/2020 DTAP/TDAP/TD VACCINES (2 - Td or Tdap) 02/22/2027 02/22/2017 Respiratory Syncytial Virus (RSV) Vaccine Pt: or over 60 yrs (1 - 1-dose 75+ series) 2035 HEPATITIS B VACCINE Aged Out No longe r eligible based on patient's age to complete this topic HIB VACCINE Aged Out No longer eligi ble based on patient's age to complete this topic HPV VACCINE Aged Out No longer eligi ble based on patient's age to complete this topic MENINGOCOCCAL (Group B) VACCINE SHARED DECISION-MAKING Aged Out No longer eligible based on patient's age to complete this topic MENINGOCOCCAL GROUPS A/C/Y/W VACCINE Aged Out No longer eligible based on patient's age to complete this topic Medical Devices Implanted Type Area [employer]board Motors Experimental Mechanic Device Identifier Shelf Expiration Date Model / Serial / Lot Stent Xact 8-6mm 40mm Crtd Slf Xpd Erg Implanted:Qty: 1 on 03/01/2022 at [facility] Left: Carotid [employer] 08/21/2024 [id number] Description:stent implanted by Dr. Aviles Stent Xact 6-8mm 30mm Crtd Slf Xpd Cls Implanted:Qty: 1 on 03/01/2022 at [facility] Left: Carotid [employer] 09/18/2024 [id number] Description:implanted by Dr. Aviles Procedures Procedure Name Priority Date/Time Associated Diagnosis Comments BASIC METABOLIC PANEL (CALCIUM TOTAL) Routine 03/02/2022 1:40 AM CDT from Last 3 Months or Most Recently Relevant to Health Maintenance Results * (ABNORMAL) BASIC METABOLIC PANEL (CALCIUM TOTAL) (03/02/2022 1:40 AM CDT) BUN 11 7 - 26 mg/dL 03/02/2022 2:11 AM CDT [facility] Creatinine 1.24(H) 0.71 - 1.16 mg/dL 03/02/2022 2:11 AM CDT [facility] Sodium 136 136 - 145 mmol/L 03/02/2022 2:11 AM CDT [facility] Potassium 4.1 3.5 - 4.5 mmol/L 03/02/2022 2:11 AM [facility] Chloride 102 98 - 107 mmol/L 03/02/2022 2:11 AM [facility] CO2 24 22 - 29 mmol/L 03/02/2022 2:11 AM [facility] Glucose 123(H) 70 - 115 mg/dL 03/02/2022 2:11 AM [facility] Calcium 8.9 8.4 - 10.2 mg/dL 03/02/2022 2:11 AM [facility] Anion Gap 14 8 - 18 03/02/2022 2:11 AM [facility] BUN/Creatinine Ratio 9 7 - 23 03/02/2022 2:11 AM [facility] Osmolality Calculated 283 270 - 300 mOsm/kg 03/02/2022 2:11 AM [facility] eGFR by CKD-EPI 66(L) >=90 mL/min/1.7 3 m2 03/02/2022 2:11 AM [facility] Blood BLOOD SPECIMEN / Unknown Venipuncture / Unknown 03/02/2022 1:40 AM CDT 03/02/2022 1:43 AM CDT Sarath Billy MD LAB - CHEMISTRY ORDERABLES [facility]ly [facility] Result [facility] [address] [place] [address], [facility] [phone] from Last 3 Months or Most Recently Relevant to Health Maintenance Insurance [id number] [facility] Care Teams Computer Aided Drafter Relationship Specialty Start Date End Date Issa Rae MD PCP - General Internal Medicine 09/27/15
--- OUTSIDE RECORDS SUMMARY | 2024-11-14 19:38 | XMS_ITS | Referral Summary ---
Author Organization [facility] Address [address] [place] [address] Care Team Providers Care Temperature Regulator Name Role Phone Issa Rae MD Primary Care Provider [phone] Issa Rae MD Unavailable Juwan Lima MD Unavailable [phone] Irina Galan MD Unavailable [phone] Encounters Date Type Department Care Team Description 11/13/2024 10:22 PM CDT - 11/13/2024 11:48 PM CDT Emergency [address] [address] Discharge Disposition: Left Against Medical Advice 09/23/2024 Telephone [facility] Pulmonology [address] [place] [phone] Andrea Murillo MD 09/21/2024 1:30 PM CHOIR ACCOMPANIST Office Visit [facility] Pulmonology [address] [place] [address] [place] [phone] Andrea Murillo MD ALONSO (obstructive sleep apnea) (Primary Dx); Nicotine dependence, cigarettes, uncomplicated; Chronic obstructive pulmonary disease, unspecified COPD type (HCC); Encounter for screening for lung cancer from Last 3 Months Allergies Active Allergy Reactions Criticality Noted Date [...] . Assessment & Plan (09/04/2023 1:28 PM CHOIR ACCOMPANIST): Patient will continue with CPAP at 14 cm water pressure due to his continued symptoms, the patient was encouraged to wear the CPAP at least 4 hours a night on 70% of the nights. Due to discrepancy from the compliance report and the patient is reporting, I have asked the patient to reach out to [employer] about the download. [facility] adapt Assessment & Plan (07/03/2023 2:04 PM CHOIR ACCOMPANIST): I have sent Ambien 10 mg p.o. [...] will follow up here in 3 months. Social History Tobacco Use Types Packs/Day Years [...] file Not on file Not on file Last Filed Vital Signs [...] cm (5' 10 ) 09/21/2024 1:11 PM CHOIR ACCOMPANIST Body Mass Index 34.44 09/21/2024 1:11 PM CHOIR ACCOMPANIST Plan of Treatment Not on file Procedures Procedure Name Priority Date/Time Associated Diagnosis [...] - Electronically signed by Sudeep Hawley M.D. T: Report ID: [id number] Reading Location: [place] [address] Procedure Note Sudeep Hawley MD - 02/26/2024 [...] Sudeep Hawley M.D. AM T: Report ID: [id number] Reading Location: [place] [address] Andrea Murillo MD IMG CT PROCEDURES Final Resu lt * PSA diagnostic (01/23/2018 9:59 AM CDT) PSA,TOTAL DIAGNOSTIC 3.1 0.0 - 3.9 ng/mL 01/23/2018 11:03 AM CDT [facility] Comment: Method: ECLIA Values obtained by different assay methods cannot be used interchangeably. Use sequential testing to confirm baseline if assay method changed during patient monitoring. 01/23/2018 9:59 AM CDT 01/23/2018 10:29 AM CDT us Juwan Lima MD LAB BLOOD ORDERABLES Final Result [facility] from Last 3 Months or Most Recently Relevant to Health Maintenance Insurance [facility] Care Teams Temperature Regulator Relationship Specialty Start Date End Date Issa Rae MD [address] [place] [address] PCP - General 03/04/17 Issa Rae MD [address] [place] [address] 03/04/17 Juwan Lima MD [address] [facility] [address] [place] [address] Radiation Oncologist Radiation Oncology 02/07/18 Irina Galan MD [address] [facility] [address] [place] [address] Referring Physician Urology 02/07/18
[2024-11-14 19:40] LABS: INR 0.9
[2024-11-14 19:41] LABS: Partial Thromboplastin Time 27.4 Seconds (22.3-36.8)
[2024-11-14 19:46] LABS: Thyroid Stimulating Hormone 0.402 uIU/mL (0.465-4.680)
[2024-11-14] MEDS: SODIUM CHLORIDE 0.9% IV 1,000 ML 999 ML IV CONT ×2 (19:50→21:30)
[2024-11-14 20:04] VITALS: O2SAT 97
[2024-11-14 20:10] LABS: Glucose Point of Care 114 mg/dl (65-105)
[2024-11-14 20:22] LABS: Ethanol < 10 mg/dL (<10)
[2024-11-14 20:34] LABS: Add Urine Microscopic? YES; Appearance Urine Cloudy (Clear); Bacteria Urine None Seen /hpf; Bilirubin Urine Negative (Negative); Blood Urine 1+ (Negative); Color Urine Yellow (Yellow); Glucose Urine UA Negative (Negative); Hyaline Casts Urine Present /lpf; Ketones Urine Trace mg/dL (Negative); Leukocyte Esterase Ur Negative LEU/UL (Negative); Mucus Urine Present /lpf; Need Manual Microscopic Reviewed; Nitrate Urine Negative (Negative); Protein Urine 2+ mg/dL (Negative); Specific Grav Ur 1.028 (1.001-1.035); Squamous Epithelial Cell Urine None Seen /hpf (Few); Urobilinogen Urine 0.2 mg/dL (<2.0); WBC Urine 0-5 /hpf (0-3)
--- NOTE | 2024-11-14 23:54 | PC.NURSE ---
Received report from ANKIT Magallanes for cont. of care. PT AOx2 refusing vital signs, and cardiac monitoring at this time. Pt appears flushed, confused and urine incontinence noted. Nephew states pt left 2 different hospital yesterday.
--- NOTE | 2024-11-15 00:26 | PC.NURSE ---
attempted to covid swab, pt refused.
[2024-11-15 01:38] LABS: SARS-CoV-2 RNA PCR Negative (Negative)
--- NOTE | 2024-11-15 01:55 | PC.NURSE ---
CRISIS at bedside discussing plan of care.
--- NOTE | 2024-11-15 04:45 | PC.NURSE ---
Pt urine incontinent x2, pt refusing VS
[2024-11-15] MEDS: HALOPERIDOL LACTATE 5 MG/ML VIAL IM (07:14)
[2024-11-15] MEDS: LORazepam INJ (*CRX) 2 MG/ML VIAL IV PUSH (07:14)
--- NOTE | 2024-11-15 07:45 | PC.NURSE ---
Breakfast tray ordered for the pt.
--- NOTE | 2024-11-15 07:52 | PC.NURSE ---
Pt refuses vitals.
[2024-11-15 08:12] VITALS: BP 112/86; PULSE 100; RESP 20; TEMP 36.7; O2SAT 96
--- NOTE | 2024-11-15 09:36 | PC.NURSE ---
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
--- NOTE | 2024-11-15 14:00 | PC.NURSE ---
Pt is accepted at [facility], room [address] A.
[2024-11-15] MEDS: LORazepam (*CRX) 1 MG TABLET 2 MG PO (16:11)
[2024-11-15] MEDS: NICOTINE (*PBKC) 21 MG PATCH 1 PATCH TRANSDERM (18:33)
== END 2024-11-15 18:54 ==
PROVIDERS: Emergency Provider Registered Nurse
DX: E86.0 Dehydration (principal); N17.9 Acute kidney failure, unspecified; R41.82 Altered mental status, unspecified; Z11.52 Encounter for screening for COVID-19; Z79.82 Long term (current) use of aspirin; Z79.899 Other long term (current) drug therapy
CPT/HCPCS: 36415; 70450; 80053; 80307; 81001; 82077; 82550; 82948; 83605; 84443; 84484; 85025; 85610; 85730; 87635; 93005; 96361; 96372; 96374; 99285; A9270; J1630; J2060; J7030